=== PATIENT | female | born 1950 | race Caucasian/White ===

== ENCOUNTER → 2018-01-13 | Outpatient (CLI) | payer BC ==
[~2018-01-13] MED LIST: ATOR10TA82 PO; LISI-788 PO; TIMO0.2528 OPB
--- NOTE | 2018-01-13 15:41 | MAMMOGRAPHY REPORT ---
BILATERAL DIGITAL SCREENING MAMMOGRAM TOMOSYNTHESIS WITH CAD: 01/13/2018 CLINICAL HISTORY: Routine screening. Patient has no complaints. TECHNIQUE: Breast tomosynthesis in addition to standard 2D mammography was performed. Current study was also evaluated with a Computer Aided Detection (CAD) system. COMPARISON: Comparison is made to exams dated: 12/07/2015 mammogram, 06/30/2013 mammogram, 08/08/2012 m ammogram, 10/26/2011 mammogram, 10/23/2011 mammogram, and 09/27/2010 mammogram - [facility]. BREAST COMPOSITION: There are scattered areas of fibroglandular density in both breasts. FINDINGS: There is stable asymmetry in the lateral right breast. No new suspicious mass, architectur al distortion or cluster of microcalcifications is seen. IMPRESSION: ACR BI-RADS CATEGORY 2: BENIGN There is no mammographic evidence of malignancy. A 1 year screening mammogram is recommended. The pa tient will receive written notification of the results. Approximately 10% of breast cancers are not detected with mammography. A negative mammographic report should not delay biopsy if a clinically suggestive mass is present. Ariella Hermosillo M.D. ay/:01/13/2018 15:06:35 Batch Operator: Shelley PONCE(Bhavana)(Hilda)(BD), [facility] letter sent: Normal 1/2 BI-RADS Code: ACR BI-RADS Category 2: Benign
== END | disposition home or self-care (01) ==
LOC: C.MAMM 12:20
PROVIDERS: ATTEND Family Medicine
DX: Z12.31 Encounter for screening mammogram for malignant neoplasm of breast (principal)

== ENCOUNTER 2023-11-05 08:45 | Observation (INO) ==
--- NOTE | 2023-10-02 09:29 | PAT Medication Instructions ---
Medication Instructions Date of Service October 02, 2023 Home Medications atorvastatin 10 mg tablet 10 mg PO PM lisinopril 20 mg-hydrochlorothiazide 25 mg tablet 1 tab PO QAM multivitamin 1 tab PO HS DO NOT take the morning of surgery lisinopril 20 mg-hydrochlorothiazide 25 mg tablet 1 tab PO QAM Take evening before surgery atorvastatin 10 mg tablet 10 mg PO PM multivitamin 1 tab PO HS Other Notes If you have any questions please call us at [phone] or [phone] or [phone] or [phone]
--- NOTE | 2023-10-11 12:37 | Anesthesiology Consultation ---
Date of Service October 11, 2023 Assessment & Plan (1) Encounter for pre-operative examination: - no blood transfusions as noted above in PMHx, patient did not want type and screen completed at PAT visit so test was cancelled. - Outpatient joint assessment: Patient is currently scheduled for inpatient pathway. If re-evaluated and patient/surgeon requests outpatient pathway, patient is acceptable candidate for outpatient joint program from anesthesia standpoint pending surgeon's office assessment of pt mo tivation/support/completion of same day joint program preop requirements. Chart Review Chart Review: Acceptable Risk for Surgery and Patient seen in Pre Admission Testing Teaching & Discussion Pre-Anesthesia Teaching/Discussion Notes: Instructed NPO after midnight before surgery, except medications with 15 cc of water. Medication instructions provided according to the PAT guidelines. History Surgery Operation Date: 11/05/23 10:00 Proposed Procedures p Right Total Knee Arthroplasty - Beto Corbett MD Height/Weight Height: 5 ft 1 in Weight: 89.5 kg Allergies Allergy/AdvReac Type Severity Reaction Status Date / Time oxycodone [From Percocet] AdvReac Unknown STOPPED Verified 10/01/23 13:56 BREATHING, VERY SLEEPY POST OP Medications Home Medications Medication Instructions Recorded Confirmed Last Taken atorvastatin 10 mg tablet 10 mg PO PM 04/28/19 10/01/23 05/06/19 21:00 lisinopril 20 1 tab PO QAM 04/28/19 10/01/23 05/06/19 08:00 mg-hydrochlorothiazide 25 mg tablet multivitamin 1 tab PO HS 04/28/19 10/01/23 05/06/19 21:00 Past Medical History Medical History (Updated 10/11/23 @ 13:10 by Crista Owens PA-C) Refusal of blood transfusions as patient is [employer] History of COVID-summer- no hosp; resolved History of colon polyps Hypertension controlled, stable per pt; white coat HTN Hyperlipidemia Patient denies h/o stroke, seizures, heart attack, heart failure, DM, blood clots/DVTs or blood transfusions. Exercise / Class Metabolic Activity III < 4 Walking/Shop/Light housework (denies chest discomfort or shortness of breath with usual activities) Past Family History Family History Brother Family history of diabetes mellitus Brother Family history of diabetes mellitus Brother Family history of diabetes mellitus Mother Family hx of colon cancer Brother Family hx of colon cancer Uncle No problems noted. Aunt Family hx of colon cancer Aunt Family hx of colon cancer Past Surgical History Surgical History History of hysterectomy TOTAL History of colonoscopy X MULTIPLE Past Anesthesia History No Hx of Anesthesia Complications and No Family Hx of Anesthesia Complications History of PONV No Hx of PONV and Hx of Motion Sickness Social History Smoking Status: Never smoker Do You Dip or Chew Tobacco: No Hx Alcohol Use: No Hx Substance Use: No substance use type: does not use Review of Systems Patient denies chest pain, shortness of breath, dyspnea on exertion, snoring, witnessed apneas, reflux, fever, chills, cough, wheezing, or palpitations. Physical Exam Vital Signs Vitals BP 113/76 P 73 TEMP 98.5 SP02 96% on RA RESP 18 Physical Patient resting comfortably in chair in no acute distress, alert and oriented, responding appropriately throughout visit Full cervical extension range of motion without pain TMD 3.5 finger breadths Mallampati Score 3 Dentition: intact, denies chipped or loose teeth, caps/crowns, implants or bridges Lungs: normal respiratory effort. Good air movement, clear throughout to auscultation, no adventitious breath sounds Cardiac: regular rate and rhythm, no murmurs noted Carotid arteries: negative bruit bilat Lab Results Anesthesia Preop Results Results Anesthesia Widget: WBC 9.82 K/ul (4.8-10.8) 10/11/23 Hgb 14.8 g/dl (12.0-16.0) 10/11/23 Hct 43.0 % (37.0-47.0) 10/11/23 Plt 323 K/uL (130-400) 10/11/23 Na 138 mmol/L (136-145) 10/11/23 K 4.0 mmol/L (3.5-5.1) 10/11/23 Cl 103 mmol/L (98-107) 10/11/23 CO2 28 mmol/L (21-32) 10/11/23 BUN 16 mg/dl (6-23) 10/11/23 Creat 0.85 mg/dl (0.6-1.2) 10/11/23 Glucose Level 125 mg/dl (70-99(Fasting)) H 10/11/23 PT 10.8 Seconds (9.0-12.0) 10/11/23 PTT 28.1 Seconds (21.0-31.0) 10/11/23 INR 1.0 (0.9-1.1) 10/11/23 HA1c 7.1 % (4.5-5.6) H 10/11/23 Testing Electrocardiogram Date: 10/11/23 NSR, rate 69 bpm Possible inferior infarct, age undetermined When compared with 12/17/2001 EKG, Nonspecific T wave abnormality no longer evident in inferior leads Nonspecific T wave abnormality now evident in lateral leads Chest X-Ray Date: 10/11/23 No active disease in the chest.
[~2023-11-05 08:45] MED LIST changes: +ACETAMINOPHEN 500 MG TAB PO SCH; -ATOR10TA82 PO; +BUPIVACAINE 0.5 % 5 MG/1 ML PF 10ML VIAL ONE; +CeleBREX 200 MG CAP PO SCH; +FAMOTIDINE 20 MG TAB PO SCH; +GABAPENTIN 300 MG CAP PO SCH; -LISI-788 PO; +LR 500ML BOLUS, THEN 15ML/HR IV SCH; +LR 60ML/HR IV SCH; +METOCLOPRAMIDE HCL 10 MG TABLET PO SCH; +ROPIVACAINE 0.5% 5 MG/ML 30 ML VIAL ONE; +ROPIVACAINE 0.5% HCL/PF 150 MG, BUPIVACAINE 0.75% MPF 20 ML, EPINEPHrine 0.15 MG, Ketor... INFIL SCH; -TIMO0.2528 OPB; +TRANEXAMIC ACID 1,000 MG **IV Pre-op IV SCH; +ceFAZolin 2000MG 2,000 MG/15 ML SYR IV SCH; +dexAMETHasone 4 MG TAB PO SCH; +traMADol HCL 50 MG TABLET PO SCH
[2023-11-05] MEDS ORDERED: PROPOFOL IV EMULSION 10 MG/ML 20 ML VIAL IV ONE ×4 (09:05→13:05)
[2023-11-05] MEDS ORDERED: ONDANSETRON INJ 2 MG/ML 2 ML VIAL ONE (09:05)
[2023-11-05] MEDS ORDERED: MIDAZOLAM HCL 1 MG/ML 2ML VIAL ONE (09:05)
--- OUTSIDE RECORDS SUMMARY | 2023-11-05 09:06 | External Medical Summary | Continuity of Care Document ---
Author Name Unknown Organization [facility] [address] [place], [place] [address] Address [address] [place] [id number] Care Team Providers Care Interpreter Translator Name Role Phone Shelley Raines Primary Care Physician [phone] Encounter [facility] [id number] Date(s): 10/11/23 - 10/11/23 [facility] [address] [id number] [facility] [address] [place] [id number] Encounter Diagnosis Right knee DJD(Discharge Diagnosis) - 10/11/23 Discharge Disposition: Home or Self Care Attending Physician: DICK Zaragoza, Luba Bateman Referring Physician: MD Aric, Beto Farias Allergies, Adverse Reactions, Alerts Substance Reaction Severity Status Percocet 7.5/325 anaphylaxis Active Immunizations Given and Recorded Vaccine Date Status Refusal Reason SARS-CoV-2 (COVID-19) mRNA-1273 vaccine 1 03/02/21 Recorded SARS-CoV-2 (COVID-19) mRNA-1273 vaccine 2 01/18/21 Recorded tetanus/diphtheria/pertuss, acel (Tdap) 10/20/18 G iven tetanus toxoids-diphtheria, Td (Adult) 3 08/27/06 Recorded 1Result Comment: 2022-06-26: Historical information-source unspecified 2Result Comment: 2022-06-26: Historical information-source unspecified 3Result Comment: 2022-06-26: Historical information-source unspecified Medications atorvastatin 10 mg oral tablet Start: 08/20/23 15:54:00 EDT, 1 tab, PO, Daily, Disp# 90 tab, Refills: 3, Pharmacy: [facility] Start Date: 08/20/23 Status: Ordered multivitamin Start: 01/04/14 13:07:00, 1 tab, PO, Daily Start Date: 01/04/14 Status: Ordered Prinzide 20 mg-25 mg oral tablet Start: 08/20/23 15:54:00 EDT, 1 tab, PO, Daily, Disp# 90 tab, Refills: 3, Pharmacy: [facility] Start Date: 08/20/23 Status: Ordered Mental Status 10/11/23 Barriers to Learning one year None evide nt Mandatory Health Literacy Documentation Yes Health Literacy Communication Barriers N ever Primary Language Spanish Problem List Condition Confirmation Course Effective Dates Status H ealth Status Informant Encounter for completion of form with patient Confirmed Active Bilateral hearing loss Confirmed Active Osteoarthritis of knees, bilateral Confirmed Active Chronic kidney disease (CKD) Confirmed Active GOA (generalized osteoarthritis) Confirmed Active ETD (eustachian tube dysfunction) Confirmed Active ECM (erythema chronicum migrans) Confirmed Active ECM (erythema chronicum migrans) Confirmed Active Family history of colon cancer Confirmed Active Grief reaction Confirmed Active Hyperglycemia Confirmed Active Right knee pain Confirmed Active Left knee pain Confirmed Active Abnormal liver enzymes Confirmed Active Combined hyperlipidemia Confirmed Active Morbid obesity Confirmed Active OA (osteoarthritis) of knee Confirmed Active Right knee DJD Confirmed Active Hand paresthesia Confirmed Active Breast cancer screening Confirmed Active Annual physical exam Confirmed Active Annual physical exam Confirmed Active Primary osteoarthritis of knees, bilateral Confirmed Active Refusal of blood transfusions as patient is Manda[place] Confirmed Active Type 2 diabetes, HbA1c goal < 7% Confirmed Active Need for second dose of COVID-19 vaccine Confirmed Active Diagnosis Diagnosis Type Effective Dates Health Status Cl inical Service Informant Right knee DJD Discharge Diagnosis 10/11/23 Procedures Procedure Date Related Diagnosis Body Site Status Mammogram 1 04/26/23 Completed Mammogram 2 04/13/22 Completed Mammogram 3 04/11/21 Completed Mammogram 4 01/20/20 Completed Colonoscopy 5 05/07/19 Completed Mammogram 6 01/15/19 Completed Mammogram 7 01/13/18 Completed Colonoscopy 8, 9, 10 02/21/16 Comp leted Mammogram 11 12/07/15 Completed Mammogram - screening 12 06/30/13 Completed Colonoscopy 13 03/22/[address] of neck 14 01/31/09 Completed Hysterectomy Completed [address] [place] [address] Impression: ACR BI-RADS CATEGORY 2: BENIGN 1. No evidence of malignancy 2No mammographic evidence of malignancy. 1 year screening is recommended. 3IMPRESSION: ACR BI-RADS CATEGORY 2: BENIGN There is no mammographic evidence of malignancy. A 1 year screening mammogram is recommended. (04/12/2022) The patient will receive wrtitten notification of the results. 4IMPRESSION: ACR BI-RADS CATEGORY 1: NEGATIVE There is no mammographic evidence of malignancy. A 1 year screening mammgoram is recommended. (01/20/2021) The patient will receive written notification of the results. 5Final Diagnosis A: Colon, descending, polypectomy: hyperplastic polyp. B: Rectum, polypectomy: tubular adenoma. 6No mammographic evidence of malignancy. 1 year screening is recommended. 7[facility] Impression: ACR BI-RADS CATEGORY 2: BENIGN 1. There is no mammographic evidence of malignancy. A 1 year screening is recommended 81 tubular adenoma; 1 hyperplastic polyp 9Pathology report-Benign adenomatous polyp and a serrated polyp 10One 2mm polyp in the cecum. Resected and retrieved. One 1mm polyp in the ascending colon. Resected and retrieved. Diverticulosis in the sigmoid colon. the colon was otherwise normal to the terminal ileum with retroflexed views of the colon and terminal ileum. 11there is no mammographic evidence of malignancy. 12Normal 13done for history of polyps, found divertic & 6 polyps 14Done for supraclavicular swelling, showed nonspecific adenopathy Vital Signs Most recent to oldest [Reference Range]: 1 Height 155 cm (10/11/23 11:04 AM) Patient Weight 92 kg (10/11/23 11:04 AM) Body Mass Index 38.29 kg/m2 (10/11/23 11:04 AM) Temperature [36.5-37.9 DegC] 36.3 DegC *LOW* (10/11/23 11:04 AM) Heart Rate 75 bpm (10/11/23 11:04 AM) Blood Pressure 164/96mmHg (10/11/23 11:04 AM) Cuff Pulse Pressure 68 mmHg (10/11/23 11:04 AM) Social History Social History Type Response Smoking Status Never smoked cigaret vickey Sex Female Patient Care team information Care Team Personnel Name: MD Raines Amy L Position: Physician - Family Med Member Role: Primary Care Provider Address: Address: [address] [place] [address] Care Team Related Persons Name: DINO VALDEZ Address: home [address] [place] [address], [phone]
--- OUTSIDE RECORDS SUMMARY | 2023-11-05 09:06 | External Medical Summary | Continuity of Care Document ---
Author Name Unknown Organization [place] [address] [place] [id number] Care Team Providers Care Tare Worker Name Role Phone Shelley Raines Primary Care Physician [phone] [id number] Date(s): 10/31/23 - 10/31/23 [facility] [address] [facility] [place] [address] [place] [address] [phone] Encounter Diagnosis Pre-op exam(Discharge Diagnosis) - 10/29/23 Body mass index [BMI] 37.0-37.9, adult(Discharge Diagnosis) - 10/31/23 Type 2 diabetes, HbA1c goal < 7%(Discharge Diagnosis) - 10/31/23 Chronic kidney disease (CKD)(Discharge Diagnosis) - 10/31/23 COVID-19(Discharge Diagnosis) - 10/31/23 Refused influenza vaccine(Discharge Diagnosis) - 10/31/23 Discharge Disposition: Home or Self Care Attending Physician: MD Fabian, Oleg Richards Allergies, Adverse Reactions, Alerts Substance Reaction Severity Status Percocet 7.5/325 anaphylaxis Active Assessment and Plan Extracted from: Title:Office Visit Note Author:DO Castro Eric Da te:10/31/23 1.Pre-op exam - Patient is medically optimized for R knee surgery on 11/05/23. - Should f/u in 6-8 weeks after appointment with PCP. 2.Type 2 diabetes, HbA1c goal < 7% - 7.1%, Currently doing diet and exercise. - f.u with PCP in 6-8 weeks to discuss further. Will not hold her from surgery at this time. 3.Chronic kidney disease (CKD) - cr of 0.85. - Stable. 4.COVID-19 - covid + on 10/24. symptoms on 12/13. day 8 of symptoms. - 3rd time with covid. - symptoms mostly resolved at this time. 5.Refused influenza vaccine - Discussed risk benefits of flu shot. - Patient declined. Thank you for allowing me to participate in this patient's care. Please refer to my attending's attestation for further documentation. Tree Castro D.O. PGY 2, [facility]CM Immunizations Given and Recorded Vaccine Date Status [...] Daily, Disp# 90 tab, Refills: 3, Pharmacy: [facility] Start Date: 08/20/23 Status: Ordered multivitamin Start: 01/04/14 13:07:00, 1 tab, PO, Daily Start Date: 01/04/14 Status: Ordered Prinzide 20 mg-25 mg oral tablet Start: 08/20/23 15:54:00 EDT, 1 tab, PO, Daily, Disp# 90 tab, Refills: 3, Pharmacy: [facility] Start Date: 08/20/23 Status: Ordered Mental Status 10/31/23 Barriers to Learning one year None evide nt Mandatory Health Literacy Documentation Yes Health Literacy Communication Barriers N ever Primary Language Syriac Problem List Condition Confirmation Course Effective Dates [...] Refusal of blood transfusions as patient is Orthodox Confirmed Active Type 2 diabetes, HbA1c goal < 7% Confirmed Active Need for second dose of COVID-19 vaccine Confirmed Active Diagnosis Diagnosis Type Effective Dates Health Status Cl inical Service Informant Pre-op exam Discharge Diagnosis 10/29/23 Body mass index [BMI] 37.0-37.9, adult Discharge Diagnosis 10/31/23 Non-Specified Type 2 diabetes, HbA1c goal < 7% Discharge Diagnosis 10/31/23 Chronic kidney disease (CKD) Discharge Diagnosis 10/31/23 COVID-19 Discharge Diagnosis 10/31/23 Refused influenza vaccine Discharge Diagnosis 10/31/23 Procedures Procedure Date Related Diagnosis Body Site [...] of neck 14 01/31/09 Completed Hysterectomy Completed [address] [place] [address] Impression: ACR BI-RADS CATEGORY 2: BENIGN 1. [...] malignancy. 1 year screening is recommended. 7[facility] Impression: ACR BI-RADS CATEGORY 2: BENIGN 1. [...] recent to oldest [Reference Range]: 1 Height 152.4 cm (10/31/23 2:47 PM) Patient Weight 87.6 kg (10/31/23 2:47 PM) Body Mass Index 37.72 kg/m2 (10/31/23 2:47 PM) Temperature [36.5-37.9 DegC] 36.9 DegC (10/31/23 2:47 PM) Heart Rate 70 bpm (10/31/23 2:47 PM) Respiratory Rate 20 br/min (10/31/23 2:47 PM) Blood Pressure 150/88mmHg (10/31/23 2:47 PM) Cuff Pulse Pressure 62 mmHg (10/31/23 2:47 PM) Social History Social History Type Response Smoking Status Never smoked cigaret vickey Sex Female FCM Outpt Note * DO Castro Eric: PERFORM MD Fabian, Oleg Richards: MODIFY Event Display: FCM Outpt Note Authored Date: Chief Complaint knee surgery pre op History of Present Illness Preoperative evaluation Requested by: Dr. Corbett Planned surgery: [_] high risk (aortic, peripheral vascular) [X] intermediate risk (intraperitoneal, intrathoracic, CEA, head and neck, orthopedic, prostate) [_] low risk (endoscopic or superficial procedures, cataract surgery, breast surgery, ambulatory procedures) Planned anesthesia: general Exercise tolerance: 7.25 MET Bleeding tendency: none Substance use: none Prior anesthesia: 1998, hysterectomy Revised Cardiac Risk Index: Score [0] [_] High Risk Surgery [_] Ischemic Heart Disease [_] History of CHF [_] History of cerebrovascular disease [_] Insulin therapy for DM [_] Pre-op Cr >2 Review of Systems Negative ROS besides what is stated in the HPI above. Physical Exam Vitals & Measurements T:36.9C HR:70(Monitored) RR:20 BP:150/88 SpO2:98% HT:152.4cm WT:87.6kg WT:87.600kg(Dosing) BMI:37.72 PHQ2 Data(Data Documented on:10/31/2023 14:43) Emotional health assessment NEGATIVE General:Alert and oriented, No acute distress HEENT:Normocephalic, TM clear, Nl gross hearing, moist oral mucosa Cardiovascular:Normal rate, Regular rhythm, No murmur, No gallop. Respiratory:Lungs are clear to auscultation, Respirations are non-labored, Breath sounds are equal Gastrointestinal:Soft, Non-tender, Non-distended, Normal bowel sounds. Musculoskeletal:Normal range of motion,normal strength. Neurologic:Normal sensory, Normal motor function, CN II-XII grossly intact. Integumentary:Warm, Dry, [place]. Psych:Mood-affect congruence. Reports no SI/HI. Speech is of normal pace and content Assessment/Plan 1.Pre-op exam - Patient is medically optimized for R knee surgery on 11/05/23. - Should f/u in 6-8 weeks after appointment with PCP. 2.Type 2 diabetes, HbA1c goal < 7% - 7.1%, Currently doing diet and exercise. - f.u with PCP in 6-8 weeks to discuss further. Will not hold her from surgery at this time. 3.Chronic kidney disease (CKD) - cr of 0.85. - Stable. 4.COVID-19 - covid + on 10/24. symptoms on 10/23. day 8 of symptoms. - 3rd time with covid. - symptoms mostly resolved at this time. 5.Refused influenza vaccine - Discussed risk benefits of flu shot. - Patient declined. Thank you for allowing me to participate in this patient's care. Please refer to my attending's attestation for further documentation. Tree Castro D.O. PGY 2, [facility] Attestation I separately obtained a brief history and exam on this patient, discussed the case with and agree with the assessment and plan of Dr. Castro. Also strongly advised the Prevnar 20, and starting on the Shingles vaccine. 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) Encounter for completion of form with patient ETD (eustachian tube dysfunction) Family history of colon cancer GOA (generalized osteoarthritis) Grief reaction Hand paresthesia Hyperglycemia Left knee pain Morbid obesity Need for second dose of COVID-19 vaccine OA (osteoarthritis) of knee Osteoarthritis of knees, bilateral Primary osteoarthritis of knees, bilateral Refusal of blood transfusions as patient is Orthodox Right knee DJD Right knee pain Type 2 diabetes, HbA1c goal < 7% Historical HTN, white coat Hypertension Procedure/Surgical History Mammogram (04/26/2023)Mammogram (04/13/2022)Mammogram (04/11/2021)Mammogram (01/20/2020)Colonoscopy (05/07/2019)Mammogram (01/15/2019)Mammogram (01/13/2018)Colonoscopy (02/21/2016)Mammogram (12/07/2015)Mammogram - screening (06/30/2013)Colonoscopy (03/22/2010)CT of neck (01/31/2009)Hysterectomy Medications atorvastatin(atorvastatin 10 mg oral tablet), 10 mg= 1 tab, PO, Daily, 3 refills hydroCHLOROthiazide-lisinopril(Prinzide 20 mg-25 mg oral tablet), 1 tab, PO, Daily, 3 refills multivitamin, 1 tab, PO, Daily Allergies Percocet 7.5/325anaphylaxis Social History Smoking Status Never smoked cigarettes Alcohol - Denies Alcohol Use Average drinks per episode in last year:0 Exercise - Occasional exercise - Comments: no formal program, but stays busy with housework. Substance Abuse - Denies Substance Abuse Tobacco - Denies Tobacco Use Use:Never smoker Family History Atrial fibrillation: Brother. Cancer of colon: Mother, Maternal Aunt and Maternal Uncle. Heart attack: Father and Brother. Heart disease: Father and Brother. Heart failure: Brother. Rectal cancer: Brother. Type II diabetes mellitus: Brother and PGM. Health Status Family Member(s) Immunizations Vaccine Date Status SARS-CoV-2 (COVID-19) mRNA-1273 vaccine 03/02/2021 Recorded Comments : 2022-06-26: Historical information-source unspecified SARS-CoV-2 (COVID-19) mRNA-1273 vaccine 01/18/2021 Recorded Comments : 2022-06-26: Historical information-source unspecified tetanus/diphtheria/pertuss, acel (Tdap) 10/20/2018 Given tetanus toxoids-diphtheria, Td (Adult) 08/27/2006 Recorded Comments : 2022-06-26: Historical information-source unspecified Recommendations Health Maintenance Pending(in the next year) OverDue Adult Influenza Vaccine due05/11/23and every 1year Due Adult COVID-19 Vaccination due10/31/23Unknown Frequency Adult Social Determinants of Health Screening due10/31/23Unknown Frequency Hepatitis C Screening due10/31/23One-time only Medicare Annual Wellness Visit due10/31/23and every 1year Osteoporosis Screening due10/31/23One-time only Pneumococcal Vaccine Older Adults due10/31/23One-time only Shingles Vaccine due10/31/23One-time only Due In Future Diabetes Management A1c not due until02/05/24and every 366day Diabetic Eye Exam not due until05/17/24and every 366day Satisfied(in the past 1 year) Satisfied Body Mass Index on10/31/23.Satisfied by KENTRELL Penaloza Donna Breast Cancer Screening on04/26/23.Satisfied by KENTRELL Arias Andrew E Diabetes Management A1c on02/04/23.Satisfied by Contributor_system, [employer] Lipid Screening on02/04/23.Satisfied by Contributor_system, [id number] Electronic Signature on File Electronically Reviewed/Signed by: Tree Castro DO Author Signature Dt/Tm:10/31/2023 03:35 PM Resident Department of Family Medicine Electronically Reviewed/Signed by: MD Ayad Clarkeigner Signature Dt/Tm: 10/31/2023 03:41 PM Assoc. Professor, Family [facility] Community Medicine [address] [place] [address] , [place] Patient Care team information Care Team Personnel Name: MD Raines Amy L Position: Physician - Family Med Member Role: Primary Care Provider Address: Address: [address] [place] [address] [address] [place] [address] Care Team Related Persons Name: DINO VALDEZ Address: home [address] [place] [address], [phone]
[2023-11-05] MEDS ORDERED: ePHEDrine sulfate 50 MG/ML AMP IV PRN (10:05)
[2023-11-05] MEDS ORDERED: ATROPINE SULFATE 0.1 MG/ML 10ML SYR IV PRN (10:05)
[2023-11-05] MEDS ORDERED: ONDANSETRON INJ 2 MG/ML 2 ML VIAL IV PRN (10:05)
[2023-11-05] MEDS ORDERED: fentaNYL citrate PF 100 MCG/2 ML VIAL IV PRN (10:05)
[2023-11-05] MEDS ORDERED: HYDROmorphone INJ 1 MG/ML SYRINGE IV PRN (10:05)
--- NOTE | 2023-11-05 10:25 | History & Physical Bridge Note ---
Date of Service November 05, 2023 History & Physical Bridge Note I have examined the patient, reviewed the History & Physical and in the interval since the performance of the History & Physical I have noted the following changes of clinical significance: no changes noted
[2023-11-05] MEDS ORDERED: VANCOMYCIN HCL 1000MG/20ML VIAL ONE (10:46)
[2023-11-05] MEDS ORDERED: ORTHO JOINT ANESTHETIC ONE (10:46)
[2023-11-05] MEDS ORDERED: PHENYLEPHRINE 100MCG/ML 10ML SYR IV ONE (11:11)
[2023-11-05] MEDS ORDERED: ePHEDrine sulfate 50 MG/5 ML SYR ONE (11:12)
[2023-11-05] MEDS ORDERED: fentaNYL citrate PF 100 MCG/2 ML VIAL ONE (12:34)
--- NOTE | 2023-11-05 14:05 | Operative Report ---
Post Operative Report Pre & Post Diagnosis Operation Date: 11/05/23 10:10 Pre-Op Diagnosis: Right Knee Osteoarthritis Post-Op Diagnosis: Right Knee Osteoarthritis I identified the patient and participated in the time-out.: Yes Procedure Operation Date: 11/05/23 10:10 Actual Procedures p Right Total Knee Arthroplasty(Right) - Beto Corbett MD Surgeon Beto Corbett MD [employer] Dragan Randhawa physicians state tested nursing assistant no resident or fellow available Estimated Blood Loss 50 Findings Consistent with Post-Op Diagnosis Specimens Resected bone and soft tissue right knee Anesthesia Type MAC Spinal Regional Complications none Disposition Accompanied Patient To Recovery: No Disposition: Recovery Room Indications Elvira Marc is 73 years old and has end-stage arthritis of her right knee. Refractory to nonsurgical methods of management. She wishes to have surgery. She is a Sh[employer] and declines blood product transfusion. Description of Procedure Informed consent. Patient identified. She identified the operative site as the right knee. I marked with my initials. A preoperative surgical timeout was performed. A preop dose of IV antibiotics was given. She was taken to the operating room positioned supine on the OR table. A bump was placed under the right hip. A padded post was placed under the knee. A tourniquet on the right thigh. Exam showed range of motion 0/5/100 to 105 degrees of flexion. She had a small knee and calf but a very large thigh. The leg was prepped and draped in the usual sterile fashion. TXA given. DVT prophylaxis with foot pumps. Postoperatively mobility foot pumps and Eliquis. Limb exsanguinated with the Esmarch. Tourniquet inflated to 250 mmHg and later elevated to 300. Because of the venous tourniquet I let the tourniquet down and reinflated after reexsanguinating. A midline longitudinal incision was made followed by medial parapatellar arthrotomy. There were grade 4 changes of the patella. The peripatellar synovial tissue was debrided. An extensile medial release was performed. The synovial reflection in the lateral gutter was released and the soft tissue on the anterior aspect of the distal femur was resected. Retropatellar fat pad was removed. The knee was then flexed with the patella everted. Cruciate ligaments were intact and then resected. Large marginal osteophytes were noted throughout the knee with grade 4 changes medially. A deficient medial meniscus and a relatively normal lateral compartment. The meniscal remnants and cruciate ligaments were resected. The t ibia was exposed. Knee subluxated. The intramedullary alignment kervin was inserted. The cutting guide which was 0 degree and slope was aligned to the tibial tubercle and pinned into place and neck cut was made and sized to a 2. Given that I could use a size 201 ahead and applied a block with 3 degrees of posterior slope for a mobile-bearing revision tray. This cut was made and the sizing was rechecked. I drilled a chief pilot hole into the distal femur and inserted the distal femoral cutting guide. 7 degree right knee valgus 13 mm thick cut based upon preop templating. Pinned into place. Collaterals protected. Cut was made. Extension gap was a symmetric 10. Epicondylar axis marked out and the distal femoral sizing block applied. Size 2 between a 2 and a 2.5. I pinned that it 2.5 and used the 2 block. Anterior down. Collaterals protected cuts were made. Osteophytes removed in the back of the knee. Box cutting guide applied and lateralized neck cut was made followed by the trial implant. Attention was turned to the tibia where the tray was aligned to the tibial tubercle and the extended drill x 2 was utilized for preparing the revision tray. Keel punch utilized. Trialing was then performed showing full extension 1+ LCL laxity in mid position. Trace MCL laxity in mid position and knee was stable at 0 and 90. Attention turned to the patella. It was 19 mm in thickness. The guide was set to preserve 14 mm of bone. The 35 patella was selected. The cut was made and the residual patellar thickness was 12. The paddle was aligned to the knee in slight flexion distal lysed and medialized. The lug holes were drilled and patellar tracking was fine with no hands technique. Ortho joint mix injected into the back the knee. Bony surfaces meticulously prepared with pulsatile lavage and drying. Canals were plugged. Flexion gap was also symmetric 10. The external rotation of the implant matched the epicondylar axis. 2 bags of Simplex P cement were vacuum mixed with 3 g of vancomycin total. While in a doughy state the components were cemented in place. Femur tibia and patella. The knee was held in full extension until the cemented hardened. Tourniquet was then let down after 110 minutes of inflation. There was no significant bleeding. The remainder the Ortho joint mix was injected into the knee while the cement was hardening. The knee was thoroughly irrigated. Trialing was again performed and the size 10 mm thick by 2 polyethylene was selected and inserted. The back the knee was inspected for cement and bleeding. Irrigation performed. Extensor mechanism closed above the equator the patella with interrupted #2 FiberWire. Below the equator of the patella with running and interrupted #1 Vicryl. The skin was closed in layers with zero 2-0 Vicryl and yoli on the skin. The leg was cleaned with wet and dry sponges a soft sterile dressing was applied Xeroform 4 x 4's ABD and a full-length Carmine wrap. Patient was sent to the floor with a Prevena wound VAC and a knee immobilizer. She can rehabilitate according to the standard total knee protocol. She was awakened from anesthesia without difficulty and taken to the recovery room in stable condition. There were no complications. The resected bone and soft tissue were sent for specimen. Counts were correct and blood loss estimated to be 50 cc. At the conclusion the operation I attempted to contact the family but no one was available to speak to. Components inserted with a J[employer]J PFC Sigma rotating platform knee. A revision mobile-bearing keeled tray. A 10 mm thick size 2 polyethylene insert with a right size 2 posterior stabilized femur and a 32 mm 3 peg oval dome patella. Composite patellar thickness was 20 mm. With the trials in flexion of the knee was approximately 110 degrees. I attest to the content of the Intraoperative Record and any orders documented therein. Any exceptions are noted below.
--- NOTE | 2023-11-05 14:09 | Operative Report ---
Post Operative Report Pre & Post Diagnosis Operation Date: 11/05/23 10:10 Pre-Op Diagnosis: Right Knee Osteoarthritis Post-Op Diagnosis: Right Knee Osteoarthritis I identified the patient and participated in the time-out.: Yes Procedure Operation Date: 11/05/23 10:10 Actual Procedures p Right Total Knee Arthroplasty(Right) - Beto Corbett MD Surgeon MORALES Corbett MD Discharge Door Operator Sydnee JENNINGS Estimated Blood Loss 50 Findings Consistent with Post-Op Diagnosis see operative report Specimens see operative report Drains none Complications none Disposition Accompanied Patient To Recovery: Yes Indications This 73 year old female presented to the office with complaints of persisting right knee pain. She had tried conservative care measures without improvement. She elected to proceed with surgical intervention after being educated about potential risks and outcomes. Preoperative imaging was obtained. Description of Procedure The patient was administered a spinal anesthetic and then taken to the operating room where she was given sedation. She was prepped and draped in the usual sterile fashion. Please see Dr. Corbett's operative report for specifics of the procedure. I was present for the entire case from initial patient positioning through final wound closure. Assistance was provided in tissue retraction, hemostasis, trial implant placement, final implant placement, and final wound closure. The patient was taken to the recovery room in satisfactory condition. I attest to the content of the Intraoperative Record and any orders documented therein. Any exceptions are noted below.
--- NOTE | 2023-11-05 14:32 | XRay Report ---
TWO VIEWS RIGHT KNEE CLINICAL HISTORY: Postoperative examination. FINDINGS: AP and crosstable lateral portable views of the right knee are obtained. A right knee arthr oplasty is in near anatomic alignment. There has been undersurface remodeling of the patella. No acut e fracture is seen. There are expected postoperative changes around the knee including skin clips, so ft tissue edema, and subcutaneous gas. IMPRESSION: Expected postoperative changes status post right knee arthroplasty. No acute fracture is seen. ACT 112: Negative or not required by law. Electronically signed by: Tree Pérez M.D. 11/05/2023 2:31 PM
--- NOTE | 2023-11-05 14:57 | Anesthesiology Progress Note ---
Date of Service November 05, 2023 Anesthesia Post Procedure Vital Signs Vital Signs: Temp Pulse Resp BP BP Pulse Ox O2 Del Method 11/05/23 14:50 83 18 106/71 96 Nasal Cannula 11/05/23 14:40 85 16 94/66 L 98 Nasal Cannula 11/05/23 14:30 83 14 97/68 L 96 Nasal Cannula 11/05/23 14:20 87 18 94/67 L 96 Nasal Cannula 11/05/23 14:10 86 20 109/57 L 93 Oxymask 11/05/23 14:04 36.3 C L 88 18 87/60 L 93 Oxymask 11/05/23 09:12 36.8 C 82 20 182/84 H 96 Room Air O2 Flow Rate 11/05/23 14:50 2 11/05/23 14:40 2 11/05/23 14:30 2 11/05/23 14:20 2 11/05/23 14:10 4 11/05/23 14:04 6 11/05/23 09:12 Pain Intensity Right Knee: Pain Intensity: 5 Transfer of Care Handoff Completed per policy Notes Mental Status: alert / awake / arousable and participated in evaluation Patient Amnestic to Procedure: Yes Nausea / Vomiting: adequately controlled Pain: adequately controlled Airway Patency, RR, SpO2: stable & adequate BP & HR: stable & adequate Hydration State: stable & adequate Neuraxial Anesthesia: was administered and sensory block is resolving Anesthetic Complications: no major complications apparent and Pt Satisfied with anesthetic care
[2023-11-05] MEDS ORDERED: METOCLOPRAMIDE HCL INJ 5 MG/ML 2 ML VIAL IV PRN (15:44)
[2023-11-05] MEDS ORDERED: HYDROCODONE/ACETAMOPHEN 5/325MG TAB PO PRN (15:44)
[2023-11-05] MEDS ORDERED: NALOXONE HCL 0.4 MG/1 ML VIAL/CARP IV PRN (15:44)
[2023-11-05] MEDS ORDERED: ALUMINUM/MAGNESIUM SUSP 30 ML UDC PO PRN (15:44)
[2023-11-05] MEDS ORDERED: HYDROmorphone INJ 0.5 MG/0.5 ML SYR IV PRN (15:44)
[2023-11-05] MEDS ORDERED: MAGNESIUM HYDROXIDE SUSP 30 ML UDC PO PRN (15:44)
[2023-11-05] MEDS ORDERED: diphenhydrAMINE 50 MG/ML VIAL IV PRN (15:44)
[2023-11-05] MEDS ORDERED: bisacodyL 10 MG SUPP PR PRN (15:44)
[2023-11-05] MEDS: SODIUM CHLORIDE 0.9% 1,000 ML IV SCH (16:06)
[2023-11-05] MEDS ORDERED: PHARMACY GLYCEMIC MGMT CONSULT PRN (17:16)
--- NOTE | 2023-11-05 17:19 | Orthopedic Progress Note ---
Date of Service November 05, 2023 Assessment & Plan (1) Status post knee replacement: Plan: Findings discussed. Stable postop. Leg elevated on pillow. X-rays show good positioning of the implants without evidence of complication. Postoperative plan is discussed. Have glycemic management watch her due to her history of hyperglycemia but no lizandro diagnosis or treatment for diabetes. She has her apixaban and Ancef ordered. We talked about pain management. Admission and Anticipated Discharge Date Admission Date: November 05, 2023 Subjective Some aching in the knee. No problems reported. Physical Exam Physical Exam: DP trace PT 1+ sensation intact motor strength EHL tibialis anterior inversion eversion plantarflexion 5 out of 5. Sensation intact to light touch throughout the foot. Dressing is clean and dry. Results & Data Vital Signs (Past 12 Hours) Vital Signs Temp Pulse Pulse Resp BP BP Pulse Ox 11/05/23 16:40 36.4 C L 81 16 109/72 98 11/05/23 16:10 36.4 C L 79 16 111/72 97 11/05/23 15:20 84 12 122/52 L 97 11/05/23 15:10 83 12 111/66 97 11/05/23 15:00 36.3 C L 86 16 94/69 L 97 11/05/23 14:50 83 18 106/71 96 11/05/23 14:40 85 16 94/66 L 98 11/05/23 14:30 83 14 97/68 L 96 11/05/23 14:20 87 18 94/67 L 96 11/05/23 14:10 86 20 109/57 L 93 11/05/23 14:04 36.3 C L 88 18 87/60 L 93 11/05/23 09:12 36.8 C 82 20 182/84 H 96 O2 Del Method O2 Flow Rate 11/05/23 16:40 Nasal Cannula 2 11/05/23 16:10 Nasal Cannula 2 11/05/23 15:20 Nasal Cannula 2 11/05/23 15:10 Nasal Cannula 2 11/05/23 15:00 Nasal Cannula 2 11/05/23 14:50 Nasal Cannula 2 11/05/23 14:40 Nasal Cannula 2 11/05/23 14:30 Nasal Cannula 2 11/05/23 14:20 Nasal Cannula 2 11/05/23 14:10 Oxymask 4 11/05/23 14:04 Oxymask 6 11/05/23 09:12 Room Air
[2023-11-05] MEDS: KETOROLAC TROMETHAMINE 15 MG/ML VIAL IV SCH ×2 (17:55→21:59)
[2023-11-05] MEDS: ASCORBIC ACID 500 MG TAB PO SCH (17:55)
[2023-11-05] MEDS: FERROUS GLUCONATE 324 MG TAB PO SCH (17:57)
[2023-11-05] MEDS: ONDANSETRON INJ 2 MG/ML 2 ML VIAL IV PRN (18:00)
[2023-11-05] MEDS ORDERED: TRANEXAMIC ACID / 0.7% NACL 1,000 MG/100 ML BAG IV SCH (20:15)
[2023-11-05] MEDS: ceFAZolin 2000MG 2,000 MG/15 ML SYR IV SCH (20:40)
[2023-11-05] MEDS: DOCUSATE SODIUM 100 MG CAP PO SCH (20:41)
[2023-11-05] MEDS ORDERED: ATORVASTATIN 10 MG TAB PO SCH (21:00)
[2023-11-05] MEDS ORDERED: SENNA 8.6 MG TAB PO SCH (21:00)
[2023-11-06] MEDS: SODIUM CHLORIDE 0.9% 1,000 ML IV SCH (01:50)
[2023-11-06] MEDS: ceFAZolin 2000MG 2,000 MG/15 ML SYR IV SCH (03:29)
[2023-11-06] MEDS: KETOROLAC TROMETHAMINE 15 MG/ML VIAL IV SCH ×2 (03:32→10:23)
[2023-11-06 06:15] LABS: Hematocrit (blood only) 33.9 % (37.0-47.0); Hemoglobin 11.3 g/dl (12.0-16.0); Mean Corpuscular Hgb Conc 33.3 g/dL (32.0-36.0); Mean Corpuscular Volume 92.9 fL (80.0-100.0); Mean Platelet Volume 10.2 fL (9.4-12.4); Platelet Count 257 K/uL (130-400); RDW Coefficient of Variation 11.7 % (11.5-14.5); RDW Standard Deviation 39.8 fL (36.4-46.3); Red Blood Count 3.65 M/uL (4.20-5.40); White Blood Count 17.66 K/ul (4.8-10.8)
[2023-11-06 06:32] LABS: BUN Creatinine Ratio 17.9 (10-20); Calcium 8.1 mg/dl (8.6-10.3); Creatinine Clr Calc Pharmacy 51.6 ml/min; Est GFR (African American) 67.9 ml/min; Est GFR (Non-African American) 58.6 ml/min; Potassium 4.2 mmol/L (3.5-5.1)
[2023-11-06] MEDS ORDERED: GLUCAGON FOR INJ 1 MG VIAL IM PRN (07:15)
[2023-11-06] MEDS ORDERED: GLUCOSE 40% GEL 15 GM TUBE PO PRN (07:15)
[2023-11-06] MEDS ORDERED: GLUCOSE 10 TAB/TUBE PO PRN (07:15)
[2023-11-06] MEDS ORDERED: CARBOHYDRATES FOR HYPOGLYCEMIA PO PRN (07:15)
[2023-11-06] MEDS ORDERED: DEXTROSE 50% 50 ML SYRINGE IV PRN (07:15)
[2023-11-06 07:32] LABS: Estimated Average Glucose 154 mg/dl
[2023-11-06] MEDS: ONDANSETRON INJ 2 MG/ML 2 ML VIAL IV PRN (08:08)
[2023-11-06] MEDS: DOCUSATE SODIUM 100 MG CAP PO SCH (08:11)
[2023-11-06] MEDS: ASCORBIC ACID 500 MG TAB PO SCH (08:11)
[2023-11-06] MEDS: FERROUS GLUCONATE 324 MG TAB PO SCH (08:11)
[2023-11-06] MEDS: INSULIN ASPART PER UNIT CHARGE SC SCH ×2 (08:13→11:49)
--- NOTE | 2023-11-06 08:37 | Orthopedic Progress Note ---
Date of Service November 06, 2023 Assessment & Plan (1) Status post knee replacement: Plan: Doing well. Will see how she does with PT and OT today. If she clears and meets criteria she will be discharged home. We talked about discharge instructions including therapy wound care. At this time she is able to do an active straight leg raise without a lag. She can ambulate without the brace but must always use a walker. Elevate ice rest. We talked about pain medications follow-up and things to watch out for. Her home health services have been arranged. She will be taking her pain pills as well as her blood thinner. Her H&H is noted. Vitals okay. White count elevated secondary to stress and steroids. He has received a postop course of IV antibiotics. He has not eaten much and will try today. Admission and Anticipated Discharge Date Admission Date: November 05, 2023 Subjective Pain well-controlled. Slight nausea and lightheadedness when she turns her head. She is not to the bathroom twice to urinate but has passed minimal if any gas. She has been burping. No bowel movement. She has not thrown up. Physical Exam Physical Exam: Dressing is clean and dry. Dressing is changed and wound VAC is applied. Wound VAC instructions are given. She had some bruising around the margins of her incision. Scant bloody drainage. No significant intra-articular effusion. 5 out of 5 ankle and toe plantarflexion dorsiflexion eversion strength with intact sensation except for some numbness around her incision and a 1+ PT pulse. Results & Data Vital Signs (Past 12 Hours) Vital Signs Temp Pulse Resp BP Pulse Ox O2 Del Method 11/06/23 07:48 36.5 C 68 16 117/73 94 Room Air 11/06/23 03:27 36.6 C 69 16 103/68 96 Room Air 11/05/23 23:22 36.4 C L 67 18 143/79 H 97 Room Air Laboratory Results Laboratory Results WBC 17.66 K/ul (4.8-10.8) H 11/06/23 05:42 RBC 3.65 M/uL (4.20-5.40) L 11/06/23 05:42 Hgb 11.3 g/dl (12.0-16.0) L 11/06/23 05:42 Hct 33.9 % (37.0-47.0) L 11/06/23 05:42 MCV 92.9 fL (80.0-100.0) 11/06/23 05:42 MCH 31.0 pg (25.0-34.0) 11/06/23 05:42 MCHC 33.3 g/dL (32.0-36.0) 11/06/23 05:42 RDW Std Deviation 39.8 fL (36.4-46.3) 11/06/23 05:42 RDW Coeff of Narda 11.7 % (11.5-14.5) 11/06/23 05:42 Plt Count 257 K/uL (130-400) 11/06/23 05:42 MPV 10.2 fL (9.4-12.4) 11/06/23 05:42 Sodium 136 mmol/L (136-145) 11/06/23 05:42 Potassium 4.2 mmol/L (3.5-5.1) 11/06/23 05:42 Chloride 106 mmol/L (98-107) 11/06/23 05:42 Carbon Dioxide 24 mmol/L (21-32) 11/06/23 05:42 Anion Gap 6 (3-11) 11/06/23 05:42 BUN 17 mg/dl (6-23) 11/06/23 05:42 Creatinine 0.95 mg/dl (0.6-1.2) 11/06/23 05:42 Est Cr Clr Drug Dosing 51.6 ml/min 11/06/23 05:42 Est GFR ( Amer) 67.9 ml/min 11/06/23 05:42 Est GFR (Non-Af Amer) 58.6 ml/min 11/06/23 05:42 BUN/Creatinine Ratio 17.9 (10-20) 11/06/23 05:42 Glucose 156 mg/dl (70-99(Fasting)) H 11/06/23 05:42 POC Glucose 132 mg/dl (70-99) H 11/06/23 07:46 Estimat Average Glucose 154 mg/dl 11/06/23 05:42 Hemoglobin A1c 7.0 % (4.5-5.6) H 11/06/23 05:42 Calcium 8.1 mg/dl (8.6-10.3) L 11/06/23 05:42 Blood Type O Positive 11/05/23 08:57 Antibody Screen NEGATIVE 11/05/23 08:57 Impressions Knee X-Ray 11/05/23 14:18 TWO VIEWS RIGHT KNEE CLINICAL HISTORY: Postoperative examination. FINDINGS: AP and crosstable lateral portable views of the right knee are obtained. A right knee arthroplasty is in near anatomic alignment. There has been undersurface remodeling of the patella. No acute fracture is seen. There are expected postoperative changes around the knee including skin clips, soft tissue edema, and subcutaneous gas. IMPRESSION: Expected postoperative changes status post right knee arthroplasty. No acute fracture is seen. ACT 112: Negative or not required by law. Electronically signed by: Tree Pérez M.D. 11/05/2023 2:31 PM
--- NOTE | 2023-11-06 08:44 | Pharmacy Report ---
Pharmacy Glycemic Short Note 2 - Date of Service November 06, 2023 - Glycemic Short BSG Results (Last 24 hours): 11/05/23 11/06/23 11/06/23 09:08 05:42 07:46 Glucose 156 H POC Glucose 134 H 132 H OUTPATIENT ANTIDIABETIC REGIMEN: * n/a HbA1c: 7% (11/06/23) ASSESSMENT: * YEN is a 73 year old female POD #1 s/p right total knee arthroplasty * Received 8 mg PO dexamethasone preoperatively * No postoperative insulin orders placed on POD #0 * Fasting BSG this morning is 132 mg/dL - may be slightly elevated in light of steroids yesterday w/ no insulin. Will hold off on basal at this time, but consider it later today if needed. * Conservative Novolog today due to no treatment at home for diabetes and reasonable HbA1c PLAN FOR INPATIENT GLYCEMIC CONTROL: * Basal insulin * hold * Bolus insulin * NovoLog per scale ACHS or Q6hrs while NPO * Goal Range: Low 110 mg/dL - High 140 mg/dL * Correction Factor: 30 mg/dL/unit * Nutritional / Prandial insulin per carb ratio of 1 unit per 10 grams CHO consumed
[2023-11-06] MEDS ORDERED: LISINOPRIL/HCTZ 20/25MG 1 TAB PO SCH (09:00)
[2023-11-06] MEDS ORDERED: MULTIVITAMIN TAB PO SCH (09:00)
[2023-11-06] MEDS ORDERED: APIXABAN 2.5 MG TAB PO SCH (10:00)
[2023-11-06] MEDS ORDERED: MECLIZINE HCL 25 MG TAB PO STA (11:10)
--- NOTE | 2023-11-06 12:53 | Discharge Summary ---
Date of Service November 06, 2023 Admission HPI Per Admitting Provider Chief Complaint pre op R) knee History of Present Illness Elvira Smith is a 73 year old Female who presents today for bilateral knee pain. The patient states that she believes she has reaches the point where she needs knee replacements. The patient has had cortisone injections and lubricated injections that have not given sufficient relief, though she has only rarely taken pain medications because she has negative reactions (itchy palms and red breakouts on the face, and sensitivity to hot water) when she takes Tylenol or ibuprofen, as well as Diclofenac.) The patient states that when she stands up, it takes her several minutes to stand up. Her most recent injection was 1 year ago (Cortisone), and one knee gave one month of relief, and the other gave 2 weeks of relief before pain returned. The patient states she does not have knee pain when sitting or sleeping. Her right knee has more pain. She has had viscosupplementation in the past without any long-lasting relief. She does not use an assistive device such as a walker or cane to assist with ambulation. She has pain on a daily basis and wishes to proceed with elective total knee arthroplasty. Surgery was discussed and she agrees to proceed. Review of Systems Denies any recent cough, cold, fevers, chills or flulike symptoms. She denies any lightheadedness, dizziness, syncopal episodes, headaches, migraines or seizures. Denies any bleeding or clotting disorders or history of DVT or pulmonary embolism. Denies any recent hospitalizations. Denies any history of metal sensitivity, latex allergy or MRSA. Denies any shortness of breath or chest pain. Denies abdominal pain, heartburn, indigestion, nausea, vomiting, diarrhea or constipation. Denies any urinary tract infections. Denies any hearing or vision changes. Denies any dental problems. The patient is a Yarsanism, and does not want to have a blood transfusion. Vitals: Last Updated 10/11/23 11:04 Date Temp BP Location Pulse RR SpO2 Pain 10/11/23 36.3 164/96 75 100 0 09/13/23 132/72 Right Arm 72 16 99 0 07/29/23 6 Height and Weight: Last Updated 10/11/23 11:04 Date BMI Wt(kg) Wt(lb) Method Ht(cm) (ft-in) Method 10/11/23 38.29 92 202 Standing Scale 155 5-1 09/13/23 89.4 197 Standing Scale 07/29/23 38.43 92.2 203 Standing Scale 154.9 5-1 1. Right knee DJD Patient is scheduled for an elective right total knee arthroplasty on November 05, 2023. Risk and complications of the procedure were explained to the patient and include but are not limited to infection, pain, bleeding, scarring, nerve and blood vessel damage, wound problems, weakness, stiffness, incomplete relief of symptoms, hardware failure, hardware loosening, wear, fracture, tendon or ligament injury, blood clots, lizards, heart attack, stroke and . All questions were answered and informed consent was obtained. She is a Yarsanism and does not wish to have any blood products or blood transfusion. She states that her will be present at the day of her surgery as well as other gnosticism members of her voodoo to give any advice for alternatives to blood transfusions if necessary. She will have preoperative medical clearance with her family physician Dr. Shelley Davis. She has preadmission testing later today which we will obtain a preoperative CBC, BMP, PT, PTT, type and screen, chest x-ray, EKG, hemoglobin A1c and a leg length film. She was instructed on the usage of the CHG wipes preoperatively. Postoperative course was discussed. She was given a prescription for a rolling walker. She may find 1 to borrow. She would like to attend outpatient physical therapy here in our office. She will follow-up as scheduled 2 weeks after her procedure with Dr. Corbett. We will use Eliquis 2.5 mg p.o. twice daily for 2 to 4 weeks after her procedure. She would like to go home after her surgery with in-home physical therapy which we will arrange preoperatively. We did discuss pain medication. She states that she will "leave that up to asked". After further discussion she did not have any swelling of her face or throat it just depressed her breathing. This was from Percocet 7.5 mg tablets. I explained to her that we use oxycodone or Banks 5 mg tablets or we may be able to just get by with some tramadol. She may or may not have the same reaction. She is hoping to get by with minimal pain medication as it is. All questions were answered. She knows to call with any further problems, questions or concerns. She understands and agrees with the plan. This chart was completed utilizing [employer] voice recognition software. Grammatical errors, random word insertions, pronoun errors, and in complete sent ences are an occasional consequence of the system. Any questions or concerns about the content, text, or information contained within the body of this dictation should be addressed directly to the provider for clarification. Problem List/Past Medical History Ongoing Abnormal liver enzymes Bilateral hearing loss Breast cancer screening Chronic kidney disease (CKD) Combined hyperlipidemia ECM (erythema chronicum migrans) ETD (eustachian tube dysfunction) Family history of colon cancer GOA (generalized osteoarthritis) Grief reaction Hand paresthesia Hyperglycemia Morbid obesity Osteoarthritis of knees, bilateral Refusal of blood transfusions as patient is Yarsanism Type 2 diabetes, HbA1c goal < 7% Historical HTN, white coat Hypertension High cholesterol Hiatal hernia Procedure/Surgical History Mammogram (04/26/2023) Mammogram (04/13/2022) Mammogram (04/11/2021) Mammogram (01/20/2020) Colonoscopy (05/07/2019) Mammogram (01/15/2019) Mammogram (01/13/2018) Colonoscopy (02/21/2016) Mammogram (12/07/2015) Mammogram - screening (06/30/2013) Colonoscopy (03/22/2010) CT of neck (01/31/2009) Hysterectomy Medications Home atorvastatin(atorvastatin 10 mg oral tablet), 10 mg= 1 tab, PO, Daily, 3 refills hydroCHLOROthiazide-lisinopril(Prinzide 20 mg-25 mg oral tablet), 1 tab, PO, Daily, 3 refills multivitamin, 1 tab, PO, Daily Allergies Percocet 7.5/325 anaphylaxis She reports an allergy to oxycodone which on closer questioning depressed her breathing but she did not have anaphylaxis rash swelling of lips tongue or throat. Social History Smoking Status Never smoked cigarettes Alcohol - Denies Alcohol Use Average drinks per episode in last year:0 Exercise - Occasional exercise - Comments: no formal program, but stays busy with housework. Substance Abuse - Denies Substance Abuse Tobacco - Denies Tobacco Use Use:Never smoker Lives with . Daughter is also going to come stay with her after surgery. She does not normally use a walker or cane to assist with ambulation. Family History Atrial fibrillation: Brother. Cancer of colon: Mother, Maternal Aunt and Maternal Uncle. Heart attack: Father and Brother. Heart disease: Father and Brother. Heart failure: Brother. Rectal cancer: Brother. Type II diabetes mellitus: Brother and PGM. Signature Line Electronic Signature on File Electronically Reviewed/Signed by: Luba Zaragoza PA-C Author Signature Dt/Tm:10/11/2023 05:06 PM Division of Sports Medicine Electronically Reviewed/Signed by: Beto Corbett MD Cosigner Signature Dt/Tm: 10/15/2023 09:36 AM Division of Sports Medicine [facility] Result Type: Pre-OP H & P Date of Service: October 11, 2023 13:10 EST Authorization Status: Final Subject: Admission H & P Author or Import Date: DICK Zaragoza, Luba Bateman on October 11, 2023 13:11 EST Verified By: MD Corbett Paul S on October 15, 2023 09:36 EST Encounter info: [id number], [facility], Clinic, 10/11/2023 - 10/11/2023 Admission Exam (Per Admitting) Constitutional Physical Exam Vitals & Measurements T: 36.3 C HR: 75 (Monitored) BP: 164/96 SpO2: 100% WT: 92 kg WT: 92.000 kg (Dosing) BMI: 38.29 kg/m2 General: Well-dressed, well-nourished. Normal mood and affect. Alert and oriented x3. HEENT: Head: Atraumatic, normocephalic. Eyes: Extraocular movements intact, pupils equal round and reactive to light, sclera normal. Ears: Ears grossly normal, TMs are clear normal light reflex. Nose: Nares are patent bilaterally. Throat: Oropharynx clear mucous membranes moist good dentition uvula midline. Neck: Supple, no lymphadenopathy, nontender palpation, full range of motion. Cardiac: Regular rate and rhythm, normal S1, S2. No murmurs, rubs or gallops appreciated. Lungs: Clear to auscultation bilaterally. No adventitious sounds. No accessory muscle use. Abdomen: Soft, nontender, nondistended, normal bowel sounds heard in all 4 quadrants. Extremities: Focusing on the patient's lower extremities: Gait Normal Varus Alignment 1+ DP and 1+ PT pulses Sensation intact to light touch Motor strength: 5/5 Knee flexion and extension; ankle plantarflexion, dorsiflexion, inversion, and eversion. Knee (left) ROM: 0/ 0/ 110 Knee (right) ROM: 0/ 3/ 100 Hip ROM: Painless, Equal to other side Active straight leg raise intact Absent Effusion +POSITIVE medial joint line tenderness right worse than left Ligament exam: ACL Intact, Endpoint intact PCL Intact, Endpoint intact TRACE MCL Laxity LCL Intact, Endpoint intact Diagnostic Results Specialty Data Orthopedic Knee X-Ray 11/05/23 14:18 TWO VIEWS RIGHT KNEE CLINICAL HISTORY: Postoperative examination. FINDINGS: AP and crosstable lateral portable views of the right knee are obtained. A right knee arthroplasty is in near anatomic alignment. There has been undersurface remodeling of the patella. No acute fracture is seen. There are expected postoperative changes around the knee including skin clips, soft tissue edema, and subcutaneous gas. IMPRESSION: Expected postoperative changes status post right knee arthroplasty. No acute fracture is seen. ACT 112: Negative or not required by law. Electronically signed by: Tree Pérez M.D. 11/05/2023 2:31 PM 11/06/23 11/06/23 11/06/23 Range/Units 11:25 07:46 05:42 WBC 17.66 H (4.8-10.8) K/ul RBC 3.65 L (4.20-5.40) M/uL Hgb 11.3 L (12.0-16.0) g/dl Hct 33.9 L (37.0-47.0) % MCV 92.9 (80.0-100.0) fL MCH 31.0 (25.0-34.0) pg MCHC 33.3 (32.0-36.0) g/dL RDW Std Deviation 39.8 (36.4-46.3) fL RDW Coeff of Narda 11.7 (11.5-14.5) % Plt Count 257 (130-400) K/uL MPV 10.2 (9.4-12.4) fL Sodium 136 (136-145) mmol/L Potassium 4.2 (3.5-5.1) mmol/L Chloride 106 (98-107) mmol/L Carbon Dioxide 24 (21-32) mmol/L Anion Gap 6 (3-11) BUN 17 (6-23) mg/dl Creatinine 0.95 (0.6-1.2) mg/dl Est Cr Clr Drug Dosing 51.6 ml/min Est GFR ( Amer) 67.9 ml/min Est GFR (Non-Af Amer) 58.6 ml/min BUN/Creatinine Ratio 17.9 (10-20) Glucose 156 H (70-99(Fasting)) mg/dl POC Glucose 141 H 132 H (70-99) mg/dl Estimat Average Glucose 154 mg/dl Hemoglobin A1c 7.0 H (4.5-5.6) % Calcium 8.1 L (8.6-10.3) mg/dl Discharge Data Procedures Performed Operation Date: 11/05/23 10:10 Actual Procedures p Right Total Knee Arthroplasty(Right) - Beto Corbett MD Hospital Course (1) Status post knee replacement: Patient has done relatively well post operatively. Her pain is managed on tramadol and with Banks. She had an episode of lightheadedness this am when she got up. She had no drop in blood pressure. Considered providing patient with meclizine, however she declined due to side effects and symptoms subsided. She has participated in PT and OT, who deem she is safe to return home with home health. Dr. Corbett spoke with her about discharge instructions including therapy wound care. At this time she is able to do an active straight leg raise without a lag. She can ambulate without the brace but must always use a walker. Elevate ice rest. We talked about pain medications follow-up and things to watch out for. she was provided for two prescriptions for pain, Banks and Tramadol. PDMP was queried without red flags. She will be on Eliquis BID for DVT prophylaxis. This was also sent to her pharmacy to take for 2 weeks with one refill. Her home health services have been arranged. Her H&H is noted. Vitals okay. White count elevated secondary to stress and steroids. He has received a postop course of IV antibiotics. She has two post op appointments made, one for removal of wound vac and one for suture removal. These dates have been updated in her d/c paper work. Discharge Instructions WBAT with walker at all times Wound vac keep in place. Do not remove Take Eliquis as prescribed, avoid NSAIDs while taking this Use ice to assist with pain control/swelling Continue with LEONARDO wright Pain medication sent, tramadol and norco take as directed to control pain. Banks for more severe pain 5-10 and tramadol for 1-4 pain. Participate in PT/OT with home health. If any concerns contact the office immediately at [phone]
== END 2023-11-06 16:50 | disposition home health service (06) ==
LOC: ASU 08:45 → 3E 08:45

== ENCOUNTER 2023-11-08 11:56 | Observation (INO) ==
--- NOTE | 2023-11-08 12:18 | Emergency Department Note ---
Impression & Plan Pulmonary embolism, COVID-19, Shortness of breath ED Provider Note NAME: LIZZIE VALDEZ AGE: 73 SEX: F : 1950 ARRIVES VIA: Ambulance INFORMANT: Patient ED PROVIDER(S): Koby Dunn DO CHIEF COMPLAINT: shortness of breath HPI: Patient is a 73-year-old female who presents to the ER for shortness of breath. She notes that she had her right knee replaced here this past Saturday. She was discharged Saturday. She notes she has been having trouble with her narcotic pills that she has been taking as she gets sick to her stomach with little woozy. She has been taking 2.5 mg of Eliquis twice daily. She notes she was not taking this prior to surgery. She denies any headache or change in vision. She notes shortness of breath started this morning about an hour after physical therapy when she was checking her blood pressure. She denies any chest pain, belly pain, nausea, vomiting, or diarrhea. No cough or congestion. ADDITIONAL HISTORY OBTAINED: Per HPI Chronic Medical/Social Conditions Affecting Care: Per HPI PAST MEDICAL HISTORY:See Below PAST SURGICAL HISTORY:See Below FAMILY HISTORY:See Below SOCIAL HISTORY:See Below HOME MEDICATIONS:See Below ALLERGIES:See Below VITALS:See Below PHYSICAL EXAMINATION: GENERAL: Sitting up in bed, alert, well appearing, well nourished, no distress, non-toxic EYE EXAM: normal conjunctiva. OROPHARYNX: mucous membranes are moist NECK: supple, no nuchal rigidity, no adenopathy, non-tender LUNGS: Clear to auscultation. Normal chest wall mechanics HEART: no murmurs, S1 normal and S2 normal ABDOMEN: abdomen soft, non-tender, normo-active bowel sounds, no masses, no rebound or guarding. UPPER EXTREMITIES: upper extremities are grossly normal. LOWER EXTREMITIES: Bandage over right anterior knee NEURO EXAM: Normal sensorium, cranial nerves II-XII grossly intact, normal speech, no gross weakness of arms, no gross weakness of legs. MEDICAL DECISION MAKING: Patient is a 73-year-old female who presents ER for above-stated complaint. IV was established blood work is obtained. Labs show mild leukocytosis of 13,000. No significant anemia. BMP with mild hypokalemia 3.4. LFTs bilirubin was unremarkable. Troponin was negative. Plans COVID was positive but she was positive for COVID previously. CT angio of the chest shows bilateral PEs. She is on Eliquis 2.5 mg twice daily. Initially ordered heparin but after discussion with Dr. Vasquez he preferred to hold on the heparin and place her on Eliquis therapeutic dosing. Patient was admitted to the hospital for further workup. Case was discussed with family who was present at bedside. Consults/Care Managements Discussions: Per [facility] Triage Nursing notes reviewed. Limited review of prior medical records performed Vital Signs: reviewed and remarkable for HTN Differential diagnosis: Differential diagnoses includes but is not limited to pneumonia, bronchitis, COPD/Asthma exacerbation, pneumothorax, pulmonary embolism, congestive heart failure, acute coronary syndrome ER treatment provided: See below Diagnostics interpreted by me include EKG and cardiac monitoring as listed below: -Cardiac Monitoring: An order was placed for continuous cardiac monitoring. The monitor shows a rate of 70 with sinus rhythm. -ECG: Sinus rhythm rate 62 Normal axis No PVCs QTc 410 -Laboratory studies:Interpreted by me as stated above in MDM and shown below. Imaging studies: Xrays: As interpreted by me: Portable AP upright 1 view of the chest shows no focal CTs show: CT angio chest shows bilateral PEs Procedures:none Past Med/Surg History Medical History (Updated 11/08/23 @ 16:21 by Koby Dunn DO) Refusal of blood transfusions as patient is [employer] History of COVID-19 summer 2022- no hosp; resolved History of colon polyps Hypertension controlled, stable per pt; white coat HTN Hyperlipidemia Surgical History (Updated 11/05/23 @ 17:19 by Beto Corbett MD) History of hysterectomy TOTAL History of colonoscopy X MULTIPLE Family History Brother Family history of diabetes mellitus Brother Family history of diabetes mellitus Brother Family history of diabetes mellitus Mother Family hx of colon cancer Brother Family hx of colon cancer Uncle No problems noted. Aunt Family hx of colon cancer Aunt Family hx of colon cancer Social History Smoking Status: Former smoker Second Hand Exposure: Yes ( A CHILD); Do You Dip or Chew Tobacco: No; Hx Alcohol Use: No Hx Substance Use: No Preferred Language: Pashto Communication Ability: Effective Loss Prevention Representative Required: No Beliefs That Will Affect Care: Sikhism Sikhism Beliefs: JEW Current Living Situation: Spouse Feels Safe at Home: Yes Assistive Devices: Walker Allergies Allergies Allergy/AdvReac Type Severity Reaction Status Date / Time oxycodone [From Percocet] AdvReac Unknown STOPPED Verified 11/05/23 09:19 BREATHING, VERY SLEEPY POST OP Home Meds Home Medications Medication Instructions Recorded Confirmed atorvastatin 10 mg tablet 10 mg PO PM 04/28/19 11/05/23 lisinopril 20 1 tab PO QAM 04/28/19 11/05/23 mg-hydrochlorothiazide 25 mg tablet multivitamin 1 tab PO HS 04/28/19 11/05/23 Previous Rx's Medication Instructions Recorded apixaban 2.5 mg tablet (Eliquis) 2.5 mg PO BID 2 weeks #28 tabs 11/06/23 hydrocodone 5 mg-acetaminophen 325 1 - 2 tab PO Q4H PRN pain #20 tabs 11/06/23 mg tablet tramadol 50 mg tablet 50 mg PO DAILY PRN pain #18 tabs 11/06/23 Results & Data (ED) Vital Signs Vital Signs - 24 hr 11/08/23 12:07 11/08/23 12:10 11/08/23 12:10 Temperature 36.6 C 36.6 C Temperature Source Oral Oral Pulse Rate 67 67 Pulse Rate [Apical] 68 Pulse Rhythm Respiratory Rate 26 H 24 Respiratory Depth Normal Respiratory Pattern Tachypnea Blood Pressure 153/71 H Blood Pressure [Right Arm] Blood Pressure Mean 98 Blood Pressure Mean [Right Arm] Blood Pressure Position [Right Arm] Pulse Oximetry 99 98 Oxygen Delivery Method Room Air Room Air Sepsis Recent Fever Within 48 Hours No Sepsis New/Unexplained Change in Mental Status No Sepsis Action Taken by Nursing No Action Required 11/08/23 12:19 11/08/23 14:11 11/08/23 15:33 Temperature Temperature Source Pulse Rate 60 74 Pulse Rate [Apical] 60 Pulse Rhythm Regular Regular Respiratory Rate 24 22 22 Respiratory Depth Normal Respiratory Pattern Blood Pressure Blood Pressure [Right Arm] 158/75 H Blood Pressure Mean Blood Pressure Mean [Right Arm] 102 Blood Pressure Position [Right Arm] Pulse Oximetry 98 97 97 Oxygen Delivery Method Room Air Room Air Room Air Sepsis Recent Fever Within 48 Hours Sepsis New/Unexplained Change in Mental Status Sepsis Action Taken by Nursing 11/08/23 15:34 11/08/23 15:57 Temperature Temperature Source Pulse Rate 72 Pulse Rate [Apical] Pulse Rhythm Respiratory Rate Respiratory Depth Respiratory Pattern Blood Pressure Blood Pressure [Right Arm] 152/86 H Blood Pressure Mean Blood Pressure Mean [Right Arm] 108 Blood Pressure Position [Right Arm] Lying Pulse Oximetry Oxygen Delivery Method Sepsis Recent Fever Within 48 Hours Sepsis New/Unexplained Change in Mental Status Sepsis Action Taken by Nursing Laboratory Data 11/08/23 12:06 11/08/23 12:06 Lab Results 11/08/23 11/08/23 11/08/23 Range/Units 12:00 12:06 16:02 WBC 13.96 H (4.8-10.8) K/ul RBC 3.91 L (4.20-5.40) M/uL Hgb 12.2 (12.0-16.0) g/dl Hct 35.5 L (37.0-47.0) % MCV 90.8 (80.0-100.0) fL MCH 31.2 (25.0-34.0) pg MCHC 34.4 (32.0-36.0) g/dL RDW Std Deviation 39.6 (36.4-46.3) fL RDW Coeff of Narda 11.9 (11.5-14.5) % Plt Count 283 (130-400) K/uL MPV 10.8 (9.4-12.4) fL Immature Gran % (Auto) 0.4 % Neut % (Auto) 70.2 % Lymph % (Auto) 19.5 % Gray % (Auto) 8.9 % Eos % (Auto) 0.6 % Baso % (Auto) 0.4 % Neut # (Auto) 9.80 H (1.40-6.50) K/uL Lymph # (Auto) 2.72 (1.20-3.40) K/uL Gray # (Auto) 1.24 H (0.11-0.59) K/uL Eos # (Auto) 0.08 (0.00-0.50) K/uL Baso # (Auto) 0.06 (0.00-0.20) K/uL Immature Gran # (Auto) 0.06 (0.01-0.20) K/uL Sodium 134 L (136-145) mmol/L Potassium 3.4 L (3.5-5.1) mmol/L Chloride 102 (98-107) mmol/L Carbon Dioxide 23 (21-32) mmol/L Anion Gap 9 (3-11) BUN 14 (6-23) mg/dl Creatinine 0.69 (0.6-1.2) mg/dl Est Cr Clr Drug Dosing 80.6 ml/min Est GFR ( Amer) 98.7 ml/min Est GFR (Non-Af Amer) 85.2 ml/min BUN/Creatinine Ratio 20.3 H (10-20) Glucose 148 H (70-99(Fasting)) mg/dl POC Glucose 115 H (70-99) mg/dl Calcium 8.9 (8.6-10.3) mg/dl Total Bilirubin 1.1 H (0.2-1.0) mg/dl AST 16 (13-39) U/L ALT 15 (7-52) U/L Alkaline Phosphatase 54 (34-104) U/L Troponin I High Sens 7.7 (0-14) pg/ml Total Protein 6.2 (6.0-8.3) gm/dl Albumin 3.4 (3.4-5.0) gm/dl Globulin 2.8 (2.5-4.0) gm/dl Albumin/Globulin Ratio 1.2 (0.9-2) Lipase 15 (11-82) U/L SARS-CoV-2 (PCR) POSITIVE A* (Negative) Influenza Type A (PCR) Negative (Neg) Influenza Type B (PCR) Negative (Neg) RSV (RT-PCR) Negative (Neg) Administered Medications Discontinued Medications Apixaban (Apixaban 2.5 Mg Tab) 7.5 mg PO NOW STA Stop: 11/08/23 15:12 Last Admin: 11/08/23 15:30 Dose: 7.5 mg Documented By: TREVOR Heparin Sodium (Porcine) (Heparin Sod (Porcine) 1000 Unit/Ml) 1 units IV NOW ONE Stop: 11/08/23 13:57 Last Admin: 11/08/23 14:41 Dose: Not Given Documented By: TREVOR Heparin Sodium (Porcine) (Heparin Sod (Porcine) 1000 Unit/Ml) 6,000 units IV NOW ONE Stop: 11/08/23 14:16 Last Admin: 11/08/23 14:28 Dose: Not Given Documented By: TREVOR Heparin Sodium/Dextrose (Heparin Iv Adult Wt-Based Standard W/ Initial Bolus Protocol) 1 each IV NOW STA; Protocol Stop: 11/08/23 13:41 Last Admin: 11/08/23 14:41 Dose: Not Given Documented By: TREVOR Heparin Sodium/Dextrose (Heparin Sodium/Dextrose) 25,000 units in 500 mls @ 26 mls/hr IV .[id number] QUENTIN; Protocol Stop: 12/08/23 13:59 Last Admin: 11/08/23 14:28 Dose: Not Given Documented By: TREVOR Ioversol (Optiray 320 125ml) 119 ml IV ONCE ONE Stop: 11/08/23 13:18 Last Admin: 11/08/23 13:18 Dose: 119 ml Documented By: ELKE Potassium Chloride (Potassium Chloride Crtab 20 Meq Tabcr) 40 meq PO NOW STA Stop: 11/08/23 15:22 Last Admin: 11/08/23 15:30 Dose: 40 meq Documented By: TREVOR Imaging Data Radiologist's Impression: Chest CTA 11/08/23 12:18 CT angio chest PE protocol CT DOSE: 861.55 mGy.cm HISTORY: 73 years-old Female with recent surg sob. Acute shortness of breath with recent surgery TECHNIQUE: Multiple CTA images of the chest were obtained after the intravenous administration of 119 ml Optiray. Coronal and sagittal MIPS were obtained from the axial data set and were submitted for review. All measurements were obtained according to NASCET criteria. A dose lowering technique was utilized adhering to the principles of ALARA. COMPARISON: Chest radiograph of same day FINDINGS: CTA: Mild cardiomegaly. Extensive coronary artery calcifications. Atherosclerosis of the aorta. Mild luminal narrowing at the origin of the left subclavian artery. Segmental and subsegmental pulmonary emboli noted bilaterally, best seen within the right lower and left upper lobes. Evaluation is limited secondary to respiratory motion artifact. No central pulmonary emboli. CT CHEST: Unremarkable thyroid. No lymphadenopathy. No pneumothorax, pleural effusion or airspace consolidation. No pulmonary infarct. Subsegmental bibasilar atelectasis. No suspicious pulmonary nodules or masses. No acute upper abdominal abnormality. Tiny hiatal hernia. Hepatic steatosis. Unremarkable soft tissues. No acute fracture. IMPRESSION: 1. Bilateral segmental and subsegmental pulmonary emboli. 2. No pulmonary infarct identified. 3. Cardiomegaly. 4. Hepatic steatosis. ACT 112: Negative or not required by law. The above report was generated using voice recognition software. It may contain grammatical, syntax or spelling errors. Electronically signed by: Carlos Raygoza M.D. 11/08/2023 1:35 PM Chest X-Ray 11/08/23 12:18 SINGLE VIEW CHEST CLINICAL HISTORY: Atypical chest pain. FINDINGS: An AP, portable, upright chest radiograph is compared to study dated atypical chest pain. The heart is mildly enlarged noting atherosclerotic calcification of the thoracic aorta. The pulmonary vasculature is noncongested. Chronic interstitial thickening is similar to previous. There is mild bibasilar scarring/atelectasis. No airspace consolidation or large pleural effusion is identified. No pneumothorax is seen. The skeletal structures are osteopenic. The bony thorax is grossly intact. IMPRESSION: No acute cardiopulmonary abnormality. ACT 112: Negative or not required by law. Electronically signed by: Tree Pérez M.D. 11/08/2023 1:23 PM Discharge Plan Visit Data Chief Complaint: Shortness of Breath/Dyspnea Stated Complaint: SOB, KNEE SX 4 DAYS AGO ED Provider: Koby Dunn Discharge Problem: Pulmonary embolism, COVID-19, Shortness of breath Forms Stand Alone Forms: My [facility] Prescriptions Prescriptions: No Action multivitamin Tablet 1 tab PO HS atorvastatin 10 mg Tablet 10 mg PO PM lisinopril-hydrochlorothiazide 20-25 mg Tablet 1 tab PO QAM hydrocodone-acetaminophen 5-325 mg Tablet 1 - 2 tab PO Q4H PRN (Reason: pain) Qty: 20 0RF Eliquis 2.5 mg Tablet 2.5 mg PO BID 14 Days Qty: 28 1RF tramadol 50 mg tablet 50 mg PO DAILY PRN (Reason: pain) Qty: 18 0RF Referrals Referrals: Shelley Raines MD [Primary Care Provider] - Discharge Problem: Pulmonary embolism Qualifiers: Pulmonary embolism type: unspecified Chronicity: unspecified Acute cor pulmonale presence: unspecified Qualified Code(s): I26.99 - Other pulmonary embolism without acute cor pulmonale
[2023-11-08 12:38] LABS: Basophils # (auto) 0.06 K/uL (0.00-0.20); Basophils % (auto) 0.4 %; Eosinophils # (auto) 0.08 K/uL (0.00-0.50); Eosinophils % (auto) 0.6 %; Hematocrit (blood only) 35.5 % (37.0-47.0); Hemoglobin 12.2 g/dl (12.0-16.0); Immature Granulocytes # (auto) 0.06 K/uL (0.01-0.20); Immature Granulocytes % (auto) 0.4 %; Lymphocytes # (auto) 2.72 K/uL (1.20-3.40); Lymphocytes % (auto) 19.5 %; Mean Corpuscular Hemoglobin 31.2 pg (25.0-34.0); Mean Corpuscular Hgb Conc 34.4 g/dL (32.0-36.0); Mean Corpuscular Volume 90.8 fL (80.0-100.0); Mean Platelet Volume 10.8 fL (9.4-12.4); Monocytes # (auto) 1.24 K/uL (0.11-0.59); Monocytes % (auto) 8.9 %; Neutrophils % (auto) 70.2 %; Platelet Count 283 K/uL (130-400); RDW Coefficient of Variation 11.9 % (11.5-14.5); RDW Standard Deviation 39.6 fL (36.4-46.3); Red Blood Count 3.91 M/uL (4.20-5.40); White Blood Count 13.96 K/ul (4.8-10.8)
[2023-11-08 12:49] LABS: Albumin Globulin Ratio 1.2 (0.9-2); Albumin Level 3.4 gm/dl (3.4-5.0); BUN Creatinine Ratio 20.3 (10-20); Bilirubin,Total 1.1 mg/dl (0.2-1.0); Calcium 8.9 mg/dl (8.6-10.3); Creatinine Clr Calc Pharmacy 80.6 ml/min; Est GFR (African American) 98.7 ml/min; Est GFR (Non-African American) 85.2 ml/min; Globulin 2.8 gm/dl (2.5-4.0); Potassium 3.4 mmol/L (3.5-5.1); Total Protein 6.2 gm/dl (6.0-8.3)
[2023-11-08 12:55] LABS: Troponin I High Sensitivity 7.7 pg/ml (0-14)
[2023-11-08 13:02] LABS: Influenza A virus by PCR Negative (Neg); Influenza B virus by PCR Negative (Neg); RSV by PCR Negative (Neg)
[2023-11-08] MEDS ORDERED: OPTIRAY 320 125ml IV ONE (13:17)
--- NOTE | 2023-11-08 13:24 | XRay Report ---
SINGLE VIEW CHEST CLINICAL HISTORY: Atypical chest pain. FINDINGS: An AP, portable, upright chest radiograph is compared to study dated atypical chest pain. T he heart is mildly enlarged noting atherosclerotic calcification of the thoracic aorta. The pulmonary vasculature is noncongested. Chronic interstitial thickening is similar to previous. There is mild b ibasilar scarring/atelectasis. No airspace consolidation or large pleural effusion is identified. No pneumothorax is seen. The skeletal structures are osteopenic. The bony thorax is grossly intact. IMPRESSION: No acute cardiopulmonary abnormality. ACT 112: Negative or not required by law. Electronically signed by: Tree Pérez M.D. 11/08/2023 1:23 PM
--- NOTE | 2023-11-08 13:38 | CT Scan Report ---
CT angio chest PE protocol CT DOSE: 861.55 mGy.cm HISTORY: 73 years-old Female with recent surg sob. Acute shortness of breath with recent surgery TECHNIQUE: Multiple CTA images of the chest were obtained after the intravenous administration of 119 ml Optiray. Coronal and sagittal MIPS were obtained from the axial data set and were submitted for review. All measurements were obtained according to NASCET criteria. A dose lowering technique was u tilized adhering to the principles of ALARA. COMPARISON: Chest radiograph of same day FINDINGS: CTA: Mild cardiomegaly. Extensive coronary artery calcifications. Atherosclerosis of the aorta. Mild lumin al narrowing at the origin of the left subclavian artery. Segmental and subsegmental pulmonary emboli noted bilaterally, best seen within the right lower and left upper lobes. Evaluation is limited seco ndary to respiratory motion artifact. No central pulmonary emboli. CT CHEST: Unremarkable thyroid. No lymphadenopathy. No pneumothorax, pleural effusion or airspace consolidation . No pulmonary infarct. Subsegmental bibasilar atelectasis. No suspicious pulmonary nodules or masses . No acute upper abdominal abnormality. Tiny hiatal hernia. Hepatic steatosis. Unremarkable soft tiss ues. No acute fracture. IMPRESSION: 1. Bilateral segmental and subsegmental pulmonary emboli. 2. No pulmonary infarct identified. 3. Cardiomegaly. 4. Hepatic steatosis. ACT 112: Negative or not required by law. The above report was generated using voice recognition software. It may contain grammatical, syntax o r spelling errors. Electronically signed by: Carlos Raygoza M.D. 11/08/2023 1:35 PM
[2023-11-08] MEDS ORDERED: Heparin IV Adult Wt-Based Standard w/ INITIAL Bolus Protocol IV STA (13:40)
[2023-11-08 13:43] LABS: SARS CoV2 RNA(COVID-19) Ceph POSITIVE (Negative)
--- NOTE | 2023-11-08 13:47 | Electrocardiogram Report ---
Test Reason : Blood Pressure : / mmHG Vent. Rate : 062 BPM Atrial Rate : 062 BPM P-R Int : 172 ms QRS Dur : 078 ms QT Int : 404 ms P-R-T Axes : 000 -13 006 degrees QTc Int : 410 ms Ectopic atrial rhythm possible Inferior infarct (cited on or before 11-OCT-2023) Abnormal ECG When compared with ECG of 11-OCT-2023 13:32, Nonspecific T wave abnormality now evident in Inferior leads Nonspecific T wave abnormality no longer evident in Lateral leads Confirmed by Luis Miguel Yanez ([id number]) on 11/08/2023 1:46:48 PM Referred By: Confirmed By:Ned Yanez
[2023-11-08] MEDS ORDERED: HEPARIN SOD (PORCINE) 1000 UNIT/ML IV ONE ×2 (13:56→14:15)
[2023-11-08] MEDS ORDERED: HEPARIN SODIUM/DEXTROSE 25,000 UNITS/500 ML BAG IV SCH (14:00)
--- NOTE | 2023-11-08 14:37 | History & Physical Report ---
Date of Service November 08, 2023 Assessment & Plan (1) Pulmonary embolism: Plan: -Admit to med/tele on pulse oximetry -Currently hemodynamically stable, stable on RA, and afebrile -Presented to the ED for new SOB after recent right knee replacement -Found to have Bilateral segmental and subsegmental pulmonary emboli on CTA of the chest -Chest xray is clear, vitals have been stable, patient denies chest discomfort -At this time the patient has multiple risk factors for blood clots including being Positive for Covid 1912 days ago and recent right knee replacement on 11/05 -The patient has been on 2.5 mg PO Eliquis for DVT PPX since her procedure, we would not consider this a failure of therapy at this time as she was on a prophylactic, not therapeutic dose -Had her am dose of 2.5 mg Eliquis -Will give her 7.5 mg PO Eliquis now and continue her on 10 mg PO BID moving forward for a total of 7 days -Will obtain BL LE venous dopplers and TTE for further evaluation -High sen trop WNL -Monitor on tele -HH/DMII diet -Eliquis for DVT PPX -AM CBC, BMP, Mag, (2) COVID-19: Plan: -Positive on PCR testing today -Testing positive approximately 12 days ago -Had been asymptomatic until getting SOB yesterday -Has been stable on RA -At this time she only requires supportive care -Incentive spirometry and flutter therapy (3) Hypokalemia: Plan: -Noted to be 3.4 today -Patient has had decreased oral intake since having covid 19 per patient and family -Has also been taking her diuretic -Will give 40 meq PO KCL now -Monitor am potassium level -Will obtain mag level (4) Status post knee replacement: Plan: -Surgical site looks intact and without infection -Continue wound vac which is functioning properly -Continue tylenol and tramadol for pain (5) DMII (diabetes mellitus, type 2): Plan: -Patient is not currently on antihyperglycemic therapy -Monitor BSG ACHS for now, goal is 110-140 -Start CF of 50 ACHS for now -DMII/HH diet -AM A1c (6) Hyperlipidemia: Plan: -continue statin (7) Hypertension: Plan: -Stable -Continue linsiopril-HCTZ Plan the patient was discussed with Dr. Pereyra at the time of the admission History of Present Illness Chief Complaint: SOB during PT Primary Care Provider: Shelley Raines MD Elvira is a 73 year old female with a PMH significant for S/P Right Total Knee Arthroplasty with Dr. Corbett on 11/05, DMII, HTN, and hyperlipidemia who presented to the [facility] ED on 11/08 after experiencing increase SOB during PT today. She was noted to be tachypneic at but otherwise stable. Labs were significant for an improving leukocytosis of 13, potassium of 3.4, sodium of 134, and covid 19 positive. Chest xray was read as negative for acute findings. CTA of the chest was read as "1. Bilateral segmental and subsegmental pulmonary emboli. 2. No pulmonary infarct identified. 3. Cardiomegaly. 4. Hepatic steatosis.". The patient was started on 2.5 mg PO Eliquis BID on 11/06 for DVT PPX after her right knee replacement on 11/05. She was discharged home on 11/06 without apparent complication. Over the past 24 hours the patient has been experiencing increased SOB with exertion and while at PT. She states that she tested positive for Covid 19 approximately 12 days ago and has been asymptomatic. The orthopedic team was aware of this prior to her procedure. She denies recent fever, chills, headache, chest pain, cough, hemoptysis, abd pain, nausea, vomiting, diarrhea, dysuria, hematuria, melena, and new leg pain. She did take her am dose of Eliquis this morning. She is a full code and would want her to make medical decisions for him if she cannot make them herself. Please refer to Dr. Pereyra's attestation for any changes to the treatment plan Allergies Allergy/AdvReac Type Severity Reaction Status Date / Time oxycodone [From Percocet] AdvReac Unknown STOPPED Verified 11/08/23 16:57 BREATHING, VERY SLEEPY POST OP Home Medications Medication Instructions Recorded Confirmed Type atorvastatin 10 mg tablet 10 mg PO PM 04/28/19 11/08/23 History lisinopril 20 1 tab PO QAM 04/28/19 11/08/23 History mg-hydrochlorothiazide 25 mg tablet multivitamin 1 tab PO HS 04/28/19 11/08/23 History apixaban 2.5 mg tablet (Eliquis) 2.5 mg PO BID 2 weeks #28 tabs 11/06/23 11/08/23 Rx hydrocodone 5 mg-acetaminophen 325 1 - 2 tab PO Q4H PRN pain #20 tabs 11/06/23 11/08/23 Rx mg tablet tramadol 50 mg tablet 50 mg PO DAILY PRN pain #18 tabs 11/06/23 11/08/23 Rx acetaminophen 500 mg tablet 1,000 mg PO Q6H PRN Fever Or Pain 11/08/23 11/08/23 History (Tylenol Extra Strength) Past Med/Surg History Medical History (Updated 11/08/23 @ 16:21 by Koby Dunn DO) Refusal of blood transfusions as patient is [employer] History of COVID-summer- no hosp; resolved History of colon polyps Hypertension controlled, stable per pt; white coat HTN Hyperlipidemia Surgical History (Updated 11/05/23 @ 17:19 by Beto Corbett MD) History of hysterectomy TOTAL History of colonoscopy X MULTIPLE Family History Brother Family history of diabetes mellitus Brother Family history of diabetes mellitus Brother Family history of diabetes mellitus Mother Family hx of colon cancer Brother Family hx of colon cancer Uncle No problems noted. Aunt Family hx of colon cancer Aunt Family hx of colon cancer Social History Smoking Status: Former smoker Second Hand Exposure: Yes ( A CHILD); Do You Dip or Chew Tobacco: No; Hx Alcohol Use: No Hx Substance Use: No Preferred Language: Yoruba Communication Ability: Effective Yarn Conditioner Required: No Beliefs That Will Affect Care: Mandaen Mandaen Beliefs: RELIGIOUS Current Living Situation: Spouse Feels Safe at Home: Yes Assistive Devices: Walker Physical Exam Physical Exam: Physical Exam: General: In no acute distress, stated age, well-nourished, good hygiene HEENT: Normocephalic, atraumatic, no scleral icterus, pupils around round, symmetrical, and reactive to light, moist mucus membranes, trachea midline, no thyromegaly Chest/Pulm: No respiratory distress, symmetrical chest expansion, clear breath sounds throughout Cardiac: RRR, no murmurs noted Abdomen: Negative for ascites and bruising, normoactive bowel sounds, soft, non-tender to palpation throughout Musculoskeletal: RLE currently wrapped and with wounds vac in place and functioning properly, no other signs of trauma noted Extremities: Radial, dorsalis pedis, and posterior tibial pulses are intact and symmetrical, no edema noted in the BL LE's Skin: Mild erythema of the RLE around the procedure site without signs of acute infection Neuro: Alert and oriented to person, place, month, year, and president, no fo radha defects, no tremors noted Psych: No acute distress, calm and cooperative during the exam Results & Data Results & Data Vital Signs (Past 12 Hours) Vital Signs Temp Pulse Pulse Resp BP BP Pulse Ox 11/08/23 14:11 60 22 158/75 H 97 11/08/23 12:19 60 24 98 11/08/23 12:10 36.6 C 68 24 98 11/08/23 12:10 36.6 C 67 26 H 153/71 H 99 11/08/23 12:07 67 O2 Del Method 11/08/23 14:11 Room Air 11/08/23 12:19 Room Air 11/08/23 12:10 Room Air 11/08/23 12:10 Room Air 11/08/23 12:07 Laboratory Results Abnormal lab results 11/08/23 11/08/23 Range/Units 12:00 12:06 WBC 13.96 H (4.8-10.8) K/ul RBC 3.91 L (4.20-5.40) M/uL Hct 35.5 L (37.0-47.0) % Neut # (Auto) 9.80 H (1.40-6.50) K/uL Humphreys # (Auto) 1.24 H (0.11-0.59) K/uL Sodium 134 L (136-145) mmol/L Potassium 3.4 L (3.5-5.1) mmol/L BUN/Creatinine Ratio 20.3 H (10-20) Glucose 148 H (70-99(Fasting)) mg/dl Total Bilirubin 1.1 H (0.2-1.0) mg/dl SARS-CoV-2 (PCR) POSITIVE A* (Negative) Diagnostic Findings Chest CTA 11/08/23 12:18 CT angio chest PE protocol CT DOSE: 861.55 mGy.cm HISTORY: 73 years-old Female with recent surg sob. Acute shortness of breath with recent surgery TECHNIQUE: Multiple CTA images of the chest were obtained after the intravenous administration of 119 ml Optiray. Coronal and sagittal MIPS were obtained from the axial data set and were submitted for review. All measurements were obtained according to NASCET criteria. A dose lowering technique was utilized adhering to the principles of ALARA. COMPARISON: Chest radiograph of same day FINDINGS: CTA: Mild cardiomegaly. Extensive coronary artery calcifications. Atherosclerosis of the aorta. Mild luminal narrowing at the origin of the left subclavian artery. Segmental and subsegmental pulmonary emboli noted bilaterally, best seen within the right lower and left upper lobes. Evaluation is limited secondary to respiratory motion artifact. No central pulmonary emboli. CT CHEST: Unremarkable thyroid. No lymphadenopathy. No pneumothorax, pleural effusion or airspace consolidation. No pulmonary infarct. Subsegmental bibasilar atelectasis. No suspicious pulmonary nodules or masses. No acute upper abdominal abnormality. Tiny hiatal hernia. Hepatic steatosis. Unremarkable soft tissues. No acute fracture. IMPRESSION: 1. Bilateral segmental and subsegmental pulmonary emboli. 2. No pulmonary infarct identified. 3. Cardiomegaly. 4. Hepatic steatosis. ACT 112: Negative or not required by law. The above report was generated using voice recognition software. It may contain grammatical, syntax or spelling errors. Electronically signed by: Carlos Raygoza M.D. 11/08/2023 1:35 PM Chest X-Ray 11/08/23 12:18 SINGLE VIEW CHEST CLINICAL HISTORY: Atypical chest pain. FINDINGS: An AP, portable, upright chest radiograph is compared to study dated atypical chest pain. The heart is mildly enlarged noting atherosclerotic calc ification of the thoracic aorta. The pulmonary vasculature is noncongested. Chronic interstitial thickening is similar to previous. There is mild bibasilar scarring/atelectasis. No airspace consolidation or large pleural effusion is identified. No pneumothorax is seen. The skeletal structures are osteopenic. The bony thorax is grossly intact. IMPRESSION: No acute cardiopulmonary abnormality. ACT 112: Negative or not required by law. Electronically signed by: Tree Pérez M.D. 11/08/2023 1:23 PM ECG Additional Comments: Ectopic atrial rhythm possible Inferior infarct (cited on or before 11-OCT-2023) Abnormal ECG When compared with ECG of 11-OCT-2023 13:32, Nonspecific T wave abnormality now evident in Inferior leads Nonspecific T wave abnormality no longer evident in Lateral leads Confirmed by Luis Miguel Yanez ([id number]) on 11/08/2023 1:46:48 PM Code Status & VTE Plan Code Status Full code VTE Prophylaxis Plan VTE Prophylaxis will be ordered: Yes Supervising Physician Co-Signing Physician Notes Attending addendum: I have physically seen this patient, have supervised the DANIEL's activities, and agree with the H&P unless as otherwise noted. Assessment and Plan: Bilateral segmental and subsegmental PEs- Contributing factors include recent right TKA on 11/05, and COVID-19 positive Patient had been on apixaban 2.5 mg p.o. twice daily for DVT prophylaxis Increase apixaban to 10 mg p.o. twice daily x 1 week then 5 mg p.o. twice daily for full treatment Order lower extremity venous Dopplers The patient will be admitted to telemetry for serial cardiac enzymes, serial EKG's, cardiac rhythm monitoring and a 2-D echocardiogram with Dopplers. Initial troponin normal Follow CBC with differential, BMP, magnesium, anti-10-day and PT/INR/PTT COVID-19 positive Patient reports that she was initially +12 days ago prior to surgery Oxygenation in normal range on room air No aggressive treatment other than available inhalers if needed Remaining orders and notations as noted PG Care Time/CCT Total # of Minutes Spent Total Time Spent with Patient: Total time spent is greater than 50% in coordination of care (as documented) at patient's floor/unit and/or counseling patient: Coding [place] [address] INT INP/OBS CARE 3/75MIN Patient Type Established Medical Decision Making High Complexity Diagnoses Pulmonary embolism I26.99 COVID-19 U07.1 Hypokalemia E87.6 Status post knee replacement Z96.659 DMII (diabetes mellitus, type 2) E11.9 Hyperlipidemia E78.5 Hypertension I10
[2023-11-08] MEDS ORDERED: GLUCOSE 10 TAB/TUBE PO PRN (15:10)
[2023-11-08] MEDS ORDERED: CARBOHYDRATES FOR HYPOGLYCEMIA PO PRN (15:10)
[2023-11-08] MEDS ORDERED: GLUCAGON FOR INJ 1 MG VIAL SQ PRN (15:10)
[2023-11-08] MEDS ORDERED: GLUCOSE 40% GEL 15 GM TUBE PO PRN (15:10)
[2023-11-08] MEDS ORDERED: DEXTROSE 50% 50 ML SYRINGE IV PRN (15:10)
[2023-11-08] MEDS ORDERED: APIXABAN 2.5 MG TAB PO STA (15:11)
[2023-11-08] MEDS ORDERED: POTASSIUM CHLORIDE CRTAB 20 MEQ TABCR PO STA (15:21)
[2023-11-08] MEDS ORDERED: ACETAMINOPHEN 325 MG TAB PO PRN (15:26)
--- NOTE | 2023-11-08 18:37 | Ultrasound Report ---
US venous doppler LE BI CLINICAL HISTORY: PE's,, RTKA 11/05, COVID + TECHNIQUE: Bilateral lower extremity real-time compression venous ultrasound with Color Doppler imagi ng. Utilizing real-time ultrasonic imaging multiple real time high-resolution ultrasonic images with compression and noncompression maneuvers of the deep venous system in addition to color doppler imagi ng were performed from the common femoral vein through the proximal calf veins. COMPARISON: None available at the time of this dictation. FINDINGS/IMPRESSION: In one of the 2 right peroneal veins, there is a small occlusive thrombus. Otherwise no DVT is seen. ACT 112: Negative or not required by law. Electronically signed by: Antonio Gardner M.D. 11/08/2023 6:36 PM
[2023-11-08] MEDS ORDERED: traMADol HCL 50 MG TABLET PO PRN (18:41)
[2023-11-08 19:22] LABS: Magnesium 1.7 mg/dl (1.7-2.4)
--- NOTE | 2023-11-08 20:40 | XCELERA ---
[id number]
[2023-11-08] MEDS ORDERED: ATORVASTATIN 10 MG TAB PO SCH (21:00)
[2023-11-08] MEDS: INSULIN ASPART PER UNIT CHARGE SC SCH ×2 (21:32→21:33)
[2023-11-09] MEDS: APIXABAN 5 MG TABLET PO SCH ×3 (02:17→11:52)
[2023-11-09 04:52] LABS: Basophils # (auto) 0.06 K/uL (0.00-0.20); Basophils % (auto) 0.5 %; Eosinophils # (auto) 0.28 K/uL (0.00-0.50); Eosinophils % (auto) 2.5 %; Hematocrit (blood only) 32.2 % (37.0-47.0); Hemoglobin 11.2 g/dl (12.0-16.0); Immature Granulocytes # (auto) 0.05 K/uL (0.01-0.20); Immature Granulocytes % (auto) 0.4 %; Lymphocytes # (auto) 3.35 K/uL (1.20-3.40); Lymphocytes % (auto) 29.6 %; Mean Corpuscular Hemoglobin 31.7 pg (25.0-34.0); Mean Corpuscular Hgb Conc 34.8 g/dL (32.0-36.0); Mean Corpuscular Volume 91.2 fL (80.0-100.0); Mean Platelet Volume 10.9 fL (9.4-12.4); Monocytes # (auto) 1.06 K/uL (0.11-0.59); Monocytes % (auto) 9.4 %; Neutrophils # (auto) 6.52 K/uL (1.40-6.50); Neutrophils % (auto) 57.6 %; Platelet Count 268 K/uL (130-400); RDW Coefficient of Variation 12.2 % (11.5-14.5); RDW Standard Deviation 40.8 fL (36.4-46.3); Red Blood Count 3.53 M/uL (4.20-5.40); White Blood Count 11.32 K/ul (4.8-10.8)
[2023-11-09 05:05] LABS: BUN Creatinine Ratio 15.2 (10-20); Calcium 8.8 mg/dl (8.6-10.3); Creatinine Clr Calc Pharmacy 70.4 ml/min; Est GFR (African American) 84.9 ml/min; Est GFR (Non-African American) 73.2 ml/min; Magnesium 1.8 mg/dl (1.7-2.4)
[2023-11-09 05:19] LABS: INR 1.1 (0.9-1.1); Prothrombin Time 11.8 Seconds (9.0-12.0)
[2023-11-09 07:03] LABS: Estimated Average Glucose 151 mg/dl; Hemoglobin A1C 6.9 % (4.5-5.6)
[2023-11-09] MEDS ORDERED: LISINOPRIL/HCTZ 20/25MG 1 TAB PO SCH (09:00)
[2023-11-09] MEDS: INSULIN ASPART PER UNIT CHARGE SC SCH ×3 (10:00→18:35)
[2023-11-09] MEDS ORDERED: APIXABAN 5 MG TABLET PO ONE (11:00)
--- NOTE | 2023-11-09 18:01 | Discharge Summary ---
Date of Service November 09, 2023 Admission HPI Per Admitting Provider Elvira is a 73 year old female with a PMH significant for S/P Right Total Knee Arthroplasty with Dr. Corbett on 11/05, DMII, HTN, and hyperlipidemia who presented to the [facility] ED on 11/08 after experiencing increase SOB during PT today. She was noted to be tachypneic at 26 but otherwise stable. Labs were significant for an improving leukocytosis of 13, potassium of 3.4, sodium of 134, and covid 19 positive. Chest xray was read as negative for acute findings. CTA of the chest was read as "1. Bilateral segmental and subsegmental pulmonary emboli. 2. No pulmonary infarct identified. 3. Cardiomegaly. 4. Hepatic s teatosis.". The patient was started on 2.5 mg PO Eliquis BID on 11/06 for DVT PPX after her right knee replacement on 11/05. She was discharged home on 11/06 without apparent complication. Over the past 24 hours the patient has been experiencing increased SOB with exertion and while at PT. She states that she tested positive for Covid 19 approximately 12 days ago and has been asymptomatic. The orthopedic team was aware of this prior to her procedure. She denies recent fever, chills, headache, chest pain, cough, hemoptysis, abd pain, nausea, vomiting, diarrhea, dysuria, hematuria, melena, and new leg pain. She did take her am dose of Eliquis this morning. She is a full code and would want her to make medical decisions for him if she cannot make them herself. Principal Diagnosis acute pulmonary emboli Discharge Exam General: In no acute distress, stated age, well-nourished, good hygiene HEENT: Normocephalic, atraumatic Chest/Pulm: No respiratory distress, symmetrical chest expansion MSK: wound vac working Psych: No acute distress, calm and cooperative during the exam Discharge Data Allergies Allergy/AdvReac Type Severity Reaction Status Date / Time oxycodone [From Percocet] AdvReac Unknown STOPPED Verified 11/08/23 16:57 BREATHING, VERY SLEEPY POST OP Consultations 11/08/23 13:45 ED Decision to Admit Stat Ordered Studies 11/08/23 12:18 CT angio chest PE protocol Stat 11/08/23 14:13 US venous doppler LE BI Stat Hospital Course (1) Pulmonary embolism: -Admit to med/tele on pulse oximetry -Currently hemodynamically stable, stable on RA, and afebrile -Presented to the ED for new SOB after recent right knee replacement -Found to have Bilateral segmental and subsegmental pulmonary emboli on CTA of the chest -Chest xray is clear, vitals have been stable, patient denies chest discomfort -At this time the patient has multiple risk factors for blood clots including being Positive for Covid 1912 days ago and recent right knee replacement on 11/05 -The patient has been on 2.5 mg PO Eliquis for DVT PPX since her procedure, we would not consider this a failure of therapy at this time as she was on a prophylactic, not therapeutic dose -Had her am dose of 2.5 mg Eliquis -Will give her 7.5 mg PO Eliquis now and continue her on 10 mg PO BID moving forward for a total of 7 days -BL LE venous dopplers: 2 right peroneal veins, there is a small occlusive thrombus -Elevated Right ventricle pressure: 40-50 TTE right elevated -High sen trop WNL will discharge on Eliquis as patient's vitals are stable and patient is on room air. (2) COVID-19: -Positive on PCR testing today -Testing positive approximately 12 days ago -Had been asymptomatic until getting SOB yesterday -Has been stable on RA -At this time she only requires supportive care -Incentive spirometry and flutter therapy (3) Hypokalemia: -Noted to be 3.4 today -Patient has had decreased oral intake since having covid 19 per patient and family -Has also been taking her diuretic -replenished (4) Status post knee replacement: -Surgical site looks intact and without infection -Continue wound vac which is functioning properly -Continue tylenol and tramadol for pain (5) DMII (diabetes mellitus, type 2): -Patient is not currently on antihyperglycemic therapy - (6) Hyperlipidemia: -continue statin (7) Hypertension: -Stable -Continue linsiopril-HCTZ Plan \\ Total Time Total Time Spent Total Time Spent (In Minutes): 32 Discharge Plan Discharge Items Patient Disposition: Home - Home Health Services Reason For Visit: SOB, NEW BL PE'S, COVID 19 POSITIVE Discharge Diagnosis: Pulmonary emboli Activity: Resume your previous activity Non-emergency contact: Primary Care Provider Call non-emergency contact if: you have any medication questions Follow-up/Referrals: Shelley Raines MD [Primary Care Provider] - Diet: Carb Consistent or DM2 Addtl Attending Provider Instructions: Please continue eliquis 10 mg twice a day for 12 doses starting tonight. then take 5 mg PO twice a day moving forward. This will be continued for 4-6 months. You have small clots in your legs, and you have multiple clots in your lung. The blood thinning medication will keep you from forming new clots while your body slowly breaks down these clots. Given that your vitals signs are normal, it is safe to be discharged. Pending Studies at Discharge: Yes Stand-Alone Forms: My [facility], Smoking Cessation Medications and DC Order Prescriptions: New Eliquis 5 mg Tablet 10 mg PO BID Qty: 72 0RF Rx Instructions: Take 2 tablets twice a day for 6 days (12 doses) then take 1 tablet twice a day starting on 11/15/22 PM dose Continued multivitamin Tablet 1 tab PO HS atorvastatin 10 mg Tablet 10 mg PO PM lisinopril-hydrochlorothiazide 20-25 mg Tablet 1 tab PO QAM hydrocodone-acetaminophen 5-325 mg Tablet 1 - 2 tab PO Q4H PRN (Reason: pain) Qty: 20 0RF tramadol 50 mg tablet 50 mg PO DAILY PRN (Reason: pain) Qty: 18 0RF acetaminophen [Tylenol Extra Strength] 500 mg Tablet 1,000 mg PO Q6H PRN (Reason: Fever Or Pain) Discontinued Eliquis 2.5 mg Tablet 2.5 mg PO BID 14 Days Qty: 28 1RF Discharge Orders: Discharge Order (Routine); Ordered 11/09/23 Ordered By: Dickson Neumann Admission Data Admit Date/Time: 11/08/23 14:43 Attending Provider: Manny Pereyra Admit Provider: Manny Pereyra Primary Care Provider: Shelley Raines Other Providers: Manny Pereyra Coding Level of Care Code 56389 INP/OBS DISCH >30 MIN Diagnoses Pulmonary embolism I26.99 Acute cor pulmonale presence: unspecified Chronicity: unspecified Pulmonary embolism type: unspecified COVID-19 U07.1 Hypokalemia E87.6 Status post knee replacement Z96.659 DMII (diabetes mellitus, type 2) E11.9 Hyperlipidemia E78.5 Hypertension I10
[2023-11-09] MEDS ORDERED: APIXABAN 5 MG TABLET PO SCH (21:00)
== END 2023-11-09 20:22 | disposition home health service (06) ==
LOC: ED 11:56 → INTOOBSV 14:43 → EDINP 14:43